=== PATIENT | female | born 1990 | race Caucasian/White ===

== ENCOUNTER → 2023-10-04 13:55 | Outpatient (BNVA) | payer OTHER, SELFPAY | PROVIDERS: Visit Provider Podiatrist Foot & Ankle Surgery | DX: B07.9 Viral wart, unspecified (principal) | CPT/HCPCS: 17110; 99203 ==

== ENCOUNTER → 2023-10-18 14:42 | Outpatient (BNVA) | payer OTHER, SELFPAY | PROVIDERS: Visit Provider Podiatrist Foot & Ankle Surgery | DX: B07.9 Viral wart, unspecified (principal) | CPT/HCPCS: 17110 ==

== ENCOUNTER → 2023-11-05 10:11 | Outpatient (BNVA) | payer OTHER, SELFPAY | PROVIDERS: Visit Provider Podiatrist Foot & Ankle Surgery | DX: B07.9 Viral wart, unspecified | CPT/HCPCS: 17110 ==

== ENCOUNTER → 2023-11-25 10:28 | Outpatient (BNVA) | payer OTHER, SELFPAY | PROVIDERS: Visit Provider Podiatrist Foot & Ankle Surgery | DX: B07.9 Viral wart, unspecified | CPT/HCPCS: 17110 ==

== ENCOUNTER → 2023-12-14 13:40 | Outpatient (BNVA) | payer OTHER, SELFPAY | PROVIDERS: Visit Provider Podiatrist Foot & Ankle Surgery | DX: B07.9 Viral wart, unspecified | CPT/HCPCS: 17110 ==

== ENCOUNTER → 2023-12-28 09:27 | Outpatient (BNVA) | payer OTHER, SELFPAY | PROVIDERS: Visit Provider Podiatrist Foot & Ankle Surgery | DX: B07.9 Viral wart, unspecified | CPT/HCPCS: 99213 ==

== ENCOUNTER → 2024-02-01 10:12 | Outpatient (BNVA) | payer OTHER, SELFPAY | PROVIDERS: PCP Nurse Practitioner; Visit Provider Podiatrist Foot & Ankle Surgery | DX: B07.9 Viral wart, unspecified | CPT/HCPCS: 99213 ==

== ENCOUNTER 2024-07-28 11:26 | Outpatient (CLI) | payer OTHER, SELFPAY ==
--- NOTE | 2024-07-28 11:28 | US_ITS ---
WS: [id number] US pelvic complete* [id number], transabdominal and transvaginal pelvic ultrasound submitted. HISTORY: ANEMIA HEAVY PERIODS COMPARISON: None available. Uterus: 8.1 cm x 5.4 cm x 4.7 cm. Uterus is anteverted during transabdominal imaging. During transvaginal imaging uterus is tipped posterior. Endometrium: 2.0 cm. Markedly thickened heterogeneous, echogenic endometrium with a few scattered cystic areas. Mild increased vascularity. Right ovary: 2.9 cm x 2.6 cm x 2.2 cm. Normal size and vascularity, no cystic or solid masses. Left ovary: LEFT ovary not visualized. No LEFT adnexal mass. No free fluid in the cul-de-sac. US/US pelvic complete* [id number] IMPRESSION: 1. Markedly thickened, hyperechoic endometrium with a few scattered cystic are as. Most likely endometrial hyperplasia. Additional etiologies to consider are neoplasia and post tamoxifen use. Recommend COFFEE SHOP AIDE evaluation and biopsy of the en dometrium. 2. LEFT ovary not visualized.
== END 2024-07-28 11:27 | disposition home or self-care (01) ==
PROVIDERS: PCP Nurse Practitioner; Visit Provider Nurse Practitioner
DX: Z01.89 Encounter for other specified special examinations (principal); R93.89 Abnormal findings on diagnostic imaging of other specified body structures
CPT/HCPCS: 76856

== ENCOUNTER 2024-11-22 18:51 | Emergency (ER) | payer OTHER, SELFPAY ==
--- OUTSIDE RECORDS SUMMARY | 2024-02-28 04:49 | XMS_ITS | Encounter Summary ---
Author Name [facility] [place] [facility] [place] Address [address] [place] [address] Care Team Providers Care Binder Caser Name Role Phone JAMES CAROL Primary Care Provider Unavail able Selected Encounter This section includes the information on record at [place] for the Encounter. Date/Time Encounter Type Encounter Description Reason Provider Source Feb 28, 2024 09:49 AM Outpatient Encounter ADMIN PAT ACTIVTIES (MASNONCT) KAI HARMAN Dong Encounter Template Text not used by [place] Plan of Treatment: Future Appointments (+ 6 months) and Future Tests (+/- 45 days) The Plan of Treatment section includes future care activities for the patient from all [place] treatmentfacilities. This section includes future appointments and future orders which are active, pending or scheduled. Future Appointments This section includes appointments that were scheduled to occur 6 months from the date of the Encounter, up to a maximum of 20 appointments. The data comes from all [place] treatment facilities. Appointment Date/Time Appointment Type Appointme nt Facility Name Jul 14, 2024 09:30 AM AMBULATORY - MEDICINE [facility] Jul 28, 2024 11:30 AM AMBULATORY - MEDICINE [facility] Lab Results: +/- 30 days of the encounter This section includes the Chemistry and Hematology Lab Results on record with [place] for the patient. Radiology Reports and Pathology Reports are provided separately, in subsequent sections. Lab Results This section contains the Chemistry/Hematology Results that were resulted 30 days before or 30 daysafter the date of the Encounter. Date/Time Source Result Type Result - Unit Interpretation Reference Range Specimen Type Comment Mar 17, 2024 08:22 AM [facility] TSH (MA-PB) SERUM Specimen Type: SERUM No comment entered. Ordering Provider: CAROL RAMIREZ Report Released Date/Time: Feb 02, 2024 09:11 AM Reporting Lab: [place] [facility] [address] [place] [address] Performing Lab: [place] [facility] [address] [place] [address] TSH 4.262 u[IU]/mL 0.47-5 Encounter Notes: All associated encounter notes This section contains the clinical notes associated to the Encounter. Date/Time Encounter Note(s) Provider Source Feb 28, 2024 09:49 AM NURSING PROGRESS N OTE: LOCAL TITLE: NURSING NOTE PB STANDARD TITLE: NURSING PROGRESS NOTE DATE OF NOTE: FEB 28, 2024@09:49 ENTRY DATE: FEB 28, 2024@09:49:30 AUTHOR: KAI HARMAN EXP COSIGNER: URGENCY: STATUS: COMPLETED Service Act Breast Cancer Risk Assessment - P: Service Act Screening Patient history reviewed and has not served in applicable areas and thus does not require screening under the Service Act. /erlinda/ KAI RODRIGUEZ CBBRANDON Signed: 02/28/2024 09:49 KAI HARMAN CBBRANDON
--- OUTSIDE RECORDS SUMMARY | 2024-11-22 03:00 | XMS_ITS | Encounter Summary ---
Author Name [facility] [place] [facility] [place] Organization [facility] [place] Address [address] [place] [address] Care Team Providers Care Cruise Agent Name Role Phone CAROL RAMIREZ Primary Care Provider Unavail able Selected Encounter This section includes the information on record at [place] for the Encounter. Date/Time Encounter Type Encounter Description Reason Provider Source Nov 22, 2024 08:00 AM OFF/OP EST AUGUST X REQ PHY/QHP PRIMARY CARE/MEDICINE ICD-10-CM R60.0 Localized edema EDGARD ADLER Dong Encounter Template Text not used by [place] Assessments - Encounter Diagnoses This section includes the primary and secondary diagnoses documented for the Encounter. Date/Time Primary/Secondary Diagnosis Diagnosis Name Provider Source Nov 22, 2024 12:25 PM PRIMARY Localized edema CHARLENE ADLER [facility] Lab Results: +/- 30 days of the encounter This section includes the Chemistry and Hematology Lab Results on record with [place] for the patient. Radiology Reports and Pathology Reports are provided separately, in subsequent sections. Lab Results This section contains the Chemistry/Hematology Results that were resulted 30 days before or 30 daysafter the date of the Encounter. Date/Time Source Result Type Result - Unit Interpretation Reference Range Specimen Type Comment Nov 22, 2024 08:43 AM [facility] IRON/TIBC PROFILE SERUM Specimen Type: SERUM Comment: FE-SAT Unable to be calculated Ordering Provider: WILFREDO RAMIREZ Report Released Date/Time: Nov 22, 2024 08:41 AM Reporting Lab: [place] [facility] [address] [place] [address] Performing Lab[facility] [address] [place] [place] [address] TIBC 345 ug/dL 250-450 TRANSFERRIN 276 mg/dL 173-360 IRON SATURATION comment 15-50 IRON <10 ug/dL L 50-170 Nov 22, 2024 08:43 AM [facility] CBC BLOOD Specimen Type: BLOOD Comment: HGB Called to: Hannah Wallace at:1505 on:11/22/24 by:QUINTEN CRITICAL/VERBAL READ BACK PERFORMED Ordering Provider: CAROL RAMIREZ Report Released Date/Time: Nov 22, 2024 08:41 AM Reporting Lab: [place] [facility] [address] [place] [address] Performing Lab: [place] [facility] [address] [place] [address] WBC 6.3 10*3/uL 3.6-11.2 RBC 3.17 10*6/uL L 3.60-5.00 HGB 6.5 g/dL LL 11.0-14.9 HCT 23.3 L 32.6-43.4 MCV 73.5 fL L 80.0-100.0 MCH 20.5 pg L 27.0-34.0 MCHC 27.9 g/dL L 33.0-36.0 PLT 537 10*3/uL H 150-400 MPV 9.9 fL 7.5-11.2 PLT. (SMEAR EST.) INCREASED ADEQUATE ANISOCYTOSIS 2+ H HYPOCHROMIA 3+ RDW 21.2 H 11.8-15.1 LYMPHOCYTES, AUTO % 29.5 MONOCYTES, AUTO % 7.0 NEUTROPHILS, AUTO % 61.7 EOSINOPHILS, AUTO % 1.3 BASOPHILS, AUTO % 0.2 LYMPHOCYTES, ABSOLUTE 1.86 10*3/uL 0.77- 4.50 MONOCYTES, ABSOLUTE 0.44 10*3/uL 0.19-0. 8 NEUTROPHILS, ABSOLUTE 3.89 10*3/uL 2.10- 8.00 EOSINOPHILS, ABSOLUTE 0.08 10*3/uL 0.00- 0.60 BASOPHILS, ABSOLUTE 0.01 10*3/uL 0.00-0. 20 IMMATURE GRANS, AUTO % 0.3 IMMATURE GRANS, AUTO ABS 0.02 10*3/uL 0. 00-0.05 NORMRBC NO SCRNPERF YES Vital Signs: All taken on the encounter date This section contains inpatient and outpatient Vital Signs collected on the date of the Encounter. Date/Time Temperature Pulse Blood Pressure Respiratory Rate SP02 Pain Height Weight Body Mass Index Source Nov 22, 2024 08:31 AM 98.1 F 82 /min 124/77 mm[Hg] 18 /min 99 % 285.2 lb 52 [facility] Social History: Smoking Status (Most current) and Tobacco Use (All prior to encounter date) This section includes the most current, and the historical, smoking and tobacco- related health factors from the [place] facility where the Encounter took place. Current Smoking Status This section includes the most current smoking, or tobacco-related health factor, from the [place] facility where the Encounter took place. Date/Time Current Smoking Status Comment Dayne gomez Aug 24, 2023 02:01 PM [place]-TOBACCO NEVER USED [facility] Encounter Notes: All associated encounter notes This section contains the clinical notes associated to the Encounter. Date/Time Encounter Note(s) Provider Source Nov 22, 2024 08:32 AM NURSING PROGRESS N OTE: LOCAL TITLE: NURSING NOTE PB STANDARD TITLE: NURSING PROGRESS NOTE DATE OF NOTE: NOV 22, 2024@08:32 ENTRY DATE: NOV 22, 2024@08:32:53 AUTHOR: FELIZ ADLER EXP COSIGNER: URGENCY: STATUS: COMPLETED This is a 34 year old FEMALE with known Allergies as noted: Patient has answered NKA C/C: Bilateral lower extremity edema and fatigue S: advised that she was started on the Depo shot on 10/17/2024 and has been on her period for almost 3 weeks. stated that she has a history of anemia and has been prescribed iron but forgets to take it sometimes. [place] stated that she feel exhausted and noticed that she is started to have LE edema. On the following Active Medications: Active Outpatient Medications (including Supplies): Active Outpatient Medications Status 1) CHOLECALCIF 50MCG (D3-2,000UNIT) TAB TAKE ONE TABLET BY ACTIVE MOUTH ONCE A DAY Indication: FOR VITAMIN D DEFICIENCY 2) FERROUS GLUCONATE 324MG TAB TAKE ONE TABLET BY MOUTH ONCE A ACTIVE DAY Indication: FOR IRON DEFICIENCY ANEMIA 3) LEVOTHYROXINE NA 100MCG TAB TAKE ONE TABLET BY MOUTH EVERY ACTIVE (S) MORNING BEFORE A MEAL TAKE 30 MINUTES BEFORE FOOD. TAKE SEPARATELY FROM ALL OTHER MEDICATIONS. Indication: FOR HYPOTHYROIDISM 4) ROSUVASTATIN CA 10MG TAB TAKE ONE TABLET BY MOUTH EVERY ACTIVE EVENING Indication: FOR HIGH CHOLESTEROL O: [place] ambulated into the clinic without assistance. Steady gait. alert and oriented x4. Unlabored breathing. Bilateral LE edema +2. A/P: Escalated to PCP appt. Provider ordered compression socks and labs. [place] given compression socks in clinic. [place] escorted to lab in stable condition. RTC: as needed /erlinda/ HALEY Espinoza, PATRICIAP [facility] Signed: 11/22/2024 12:25 FELIZ ADLER [place] JANEE
--- OUTSIDE RECORDS SUMMARY | 2024-11-22 03:30 | XMS_ITS | Encounter Summary ---
Author Name [facility] [place] [facility] [place] [facility] [place] Address [address] [place] [address] Care Team Providers Care Rotary Saw Operator Name Role Phone CAROL RAMIREZ Primary Care Provider Unavail able Selected Encounter This section includes the information on record at [place] for the Encounter. Date/Time Encounter Type Encounter Description Reason Provider Source Nov 22, 2024 08:30 AM OFFICE O/P EST MOD 30 MIN PRIMARY CARE/MEDICINE ICD-10-CM N92.1 Excessive and frequent menstruation with irregular cycle SIMON WALLACE IHDong Encounter Template Text not used by [place] Assessments - Encounter Diagnoses This section includes the primary and secondary diagnoses documented for the Encounter. Date/Time Primary/Secondary Diagnosis Diagnosis Name Provider Source Nov 22, 2024 01:00 PM PRIMARY Excessive and frequent menstruation with irregular cycle HANNAH WALLACE [facility] [place] [facility] Nov 22, 2024 01:00 PM SECONDARY Edema, unspecified HANNAH WALLACE [facility] [place] [facility] Nov 22, 2024 01:00 PM SECONDARY Other fatigue HANNAH WALLACE [facility] Lab Results: +/- 30 days of the encounter This section includes the Chemistry and Hematology Lab Results on record with [place] for the patient. Radiology Reports and Pathology Reports are provided separately, in subsequent sections. Lab Results This section contains the Chemistry/Hematology Results that were resulted 30 days before or 30 daysafter the date of the Encounter. Date/Time Source Result Type Result - Unit Interpretation Reference Range Specimen Type Comment Nov 22, 2024 08:43 AM [facility] IRON/TIBC PROFILE SERUM Specimen Type: SERUM Comment: FE-SAT Unable to be calculated Ordering Provider: WILFREDO RAMIREZ Report Released Date/Time: Nov 22, 2024 08:41 AM Reporting Lab: [place] [facility] [address] [place] [address] Performing Lab: [place] [facility] [address] [place] [address] TIBC 345 ug/dL 250-450 TRANSFERRIN 276 mg/dL 173-360 IRON SATURATION comment 15-50 IRON <10 ug/dL L 50-170 Nov 22, 2024 08:43 AM [facility] CBC BLOOD Specimen Type: BLOOD Comment: HGB Called to: Hannah Wallace at:1505 on:11/22/24 by:SF CRITICAL/VERBAL READ BACK PERFORMED Ordering Provider: CAROL RAMIREZ Report Released Date/Time: Nov 22, 2024 08:41 AM Reporting Lab: [place] [facility] [address] [place] [address] Performing Lab: [place] [facility] [address] [place] [address] WBC 6.3 10*3/uL 3.6-11.2 RBC 3.17 10*6/uL [...] 18 /min 99 % 285.2 lb 52 [facility] Social History: Smoking Status (Most current) and Tobacco Use (All prior to encounter date) This section includes the most current, and the historical, smoking and tobacco- related health factors from the [place] facility where the Encounter took place. Current Smoking Status This section includes the most current smoking, or tobacco-related health factor, from the [place] facility where the Encounter took place. Date/Time Current Smoking Status Comment Facil ity Aug 24, 2023 02:01 PM [place]-TOBACCO NEVER USED [facility] Encounter Notes: All associated encounter notes This section contains the clinical notes associated to the Encounter. Date/Time Encounter Note(s) Provider Source Nov 22, 2024 04:36 PM LABORATORY NOTE: LOCAL TITLE: CRITICAL LAB RESULTS COMMUNICATION NOTE PB STANDARD TITLE: LABORATORY NOTE DATE OF NOTE: NOV 22, 2024@16:36 ENTRY DATE: NOV 22, 2024@16:36:27 AUTHOR: GLORIA CHAVES EXP COSIGNER: URGENCY: STATUS: COMPLETED CRITICAL LAB RESULTS COMMUNICATION NOTE PB Has ADDENDA Critically low Hgb of 6.5 related to prolonged heavy menstral bleeding post Depo shot at GYNs office on October 17. [place] has been unavailable despite mult attempts by personnel. HIPAA compliant voicemail left. /erlinda/ Gloria Chaves APRN, MARINE MECHANIC-C, [facility] Bill Mcgarry [facility] Signed: 11/22/2024 16:38 11/23/2024 ADDENDUM STATUS: COMPLETED Contacted [place] and confirmed that she went to the ER last night and received a unit of blood. [place] stated that she will call back for appt to follow up with PCP. /erlinda/ Nelly Grant RN [place], JAllenP [facility] Signed: 11/23/2024 08:16 GLORIA CHAVES [place] [facility] Nov 22, 2024 08:47 AM PRIMARY CARE PROGR ESS NOTE: LOCAL TITLE: PRIMARY CARE CLINIC PROGRESS NOTE PB STANDARD TITLE: PRIMARY CARE PROGRESS NOTE DATE OF NOTE: NOV 22, 2024@08:47 ENTRY DATE: NOV 22, 2024@08:47:31 AUTHOR: HANNAH WALLACE EXP COSIGNER: URGENCY: STATUS: COMPLETED PRIMARY CARE CLINIC PROGRESS NOTE PB Has ADDENDA Date & Time:Oct@08:47 This is a 34 year old FEMALE Allergies: Patient has answered NKA CC: period for 3 weeks and lower edema HPI: presented today for as a walk-in unscheduled appointment for complaints of excessive bleeding x 3 weeks with menstrual cycle heavy with large clots. States received the Depo shot at GYNs office on October 17 and has been bleeding ever since. [place] has bilateral lower leg edema with excessive fatigue and some dizziness with bending over states that she does not want the Depo injection anymore instructed to follow-up with her at her COMMUNICATIONS AGENT since the COMMUNICATIONS AGENT did prescribe and instructed on different options as far as medication goes for control instructed to discuss with COMMUNICATIONS AGENT on different options and to go ahead and get that changed at this point agrees to follow-up and do that. Will do labs today because of fatigue edema and dizziness. Temperature: 98.1 F [36.7 C] (11/22/2024 08:31) Respiratory Rate: 18 (11/22/2024 08:31) Pulse Rate: 82 (11/22/2024 08:31) Blood Pressure: 124/77 (11/22/2024 08:31) HT: 62.0 in [157.5 cm] (09/14/2023 14:50) WT: 285.2 lb [129.36 kg] (11/22/2024 08:31) BMI: 52.3 99% (11/22/2024 08:31) REVIEW OF SYSTEMS: RESPIRATORY: No cough, SOA, wheezing, or sputum production. CARDIOVASCULAR: No chest pain, palpitations, tachycardia, PND, or orthopnea. GI: No abdominal pain, nausea, vomiting, diarrhea, constipation, melena, or hematochezia. : No dysuria, hematuria, urinary frequency, weak stream, or post-void dribbling. excessive mentral cycle for 3 weeks heavy with clotting MUSCULOSKELETAL: No muscle or joint pain. Generalized fatigue PSYCH: No depression and anxious at this time. Not suicidal. 1) Hypothyroidism ([facility] [id number]) 2) Obesity ([facility] [id number]) 3) Hearing Loss ([facility] [id number]) 4) Tinnitus 5) Oligomenorrhea 6) Exposure to Potentially Hazardous Substance ([facility] [id number]) 7) Anemia 8) Endometrial hyperplasia Active Outpatient Medications (including Supplies): Active Outpatient [...] EVERY ACTIVE EVENING Indication: FOR HIGH CHOLESTEROL OBJECTIVE: Physical Exam General: NAD noted, A&Ox3, pleasant, appears stated age Neck: Supple with normal active ROM, without any lymphadenopathy Heart: RRR, no murmur, clicks, or rub Resp: Lungs CTA bilaterally, respirations even and unlabored Abdomen: Soft, non-distended, non-tender Ext: No clubbing, cyanosis, or obvious deformity. lower extremity edema bilaterally Neuro: Grossly intact Psych: Affect normal, answers questions appropriately throughout visit Assessment/Plan: fatigue -current plan labs today menorrhagia -current plan to return to COMMUNICATIONS AGENT for control medication change and plan labs today. lower extremity edema -current plan proper hydration and support socks Follow-up: as needed. Discussed with patient that in the event of community imaging / testing being ordered in the future, once the imaging / testing has been completed, please notify PACT of completion at outside facility if not called with results within 1 week by a [place] PACT member; this is due to intermittent lapses in notification of imaging completion within CPR[facility]. All questions answered; agrees to plan of care. Follow up as listed above, annually, and as needed. Keep all appointments. Medications Reconciled. See AVS given to [place]. Time spent 30 minutes. Hannah TAYLOR /erlinda/ YVONNE Paiz, MSN, Bill [facility] Signed: 11/22/2024 13:06 11/22/2024 ADDENDUM STATUS: COMPLETED Attempted to contact to advised that the Provider recommends for her to report to the ER for further evaluation and treatment for Hgb 6.5. No answer. Left VM. /es/ Nelly Grant RN [place] [facility], [facility] Signed: 11/22/2024 15:10 11/22/2024 ADDENDUM STATUS: COMPLETED Left [facility] Compliant voicemail as was not available. /es/ Gloria Chaves APRN, YVONNE-C, C Bill [facility] Signed: 11/22/2024 16:35 [facility] WALL[facility]
[2024-11-22 18:53] VITALS: BP 156/79; PULSE 96; RESP 18; TEMP 36.8; O2SAT 100; BMI 52.1
--- NOTE | 2024-11-22 19:04 | W.ED.RECABL ---
HPI - Recheck/Abnormal Lab/Rx General: Chief Complaint: Recheck/Abnormal Lab/Rx Stated Complaint: [facility], blood transfusion Time Seen by Provider: 11/22/24 18:54 Source: patient Mode of arrival: ambulatory Limitations: no limitations History of Present Illness: 34-year-old female who states that she has had a history of heavy menses in the past along with slight anemia states she started Depo shot a month ago and has had a continuous period since then. She states that she has not seen her physician and had her blood drawn and was called today and told to stop the Depo shot and that she would likely need a blood transfusion she has had some malaise denies any vomiting or diarrhea. Related Data Home Medications ?Medication ?Instructions ?Recorded ?Confirmed levothyroxine 25 mcg capsule 25 mcg PO DAILY 10/04/23 10/17/24 Previous Rx's ?Medication ?Instructions ?Recorded fluorouracil 5 % topical cream 1 applic topical BID 2 weeks #40 10/04/23 grams medroxyprogesterone 150 mg/mL 150 mg IM .[id number] #1 mL 10/16/24 intramuscular suspension (Depo-Provera) Allergies Allergy/AdvReac Type Severity Reaction Status Date / Time No Known Allergies Allergy Verified 11/22/24 19:00 Review of Systems Const: Reports: fatigue and malaise; Denies: fever(s), chills, body aches or change in appetite ENMT: Denies: throat pain or dental pain Card: Denies: chest pain Resp: Denies: dyspnea GI: Denies: abdominal pain, nausea, vomiting or diarrhea : Denies: dysuria Musc: Denies: neck pain or back pain Skin/Breast: Denies: rash Neuro: Denies: headache(s) All/Imm: Denies: urticaria PFSH ED PFSH: Family History Denies family history of Colon cancer Ovarian cancer Diabetes Heart disease Hyperlipidemia Breast cancer Hypertension Uterine cancer Thyroid disease Stroke Social History Smoking and tobacco/nicotine status: current every day tobacco/nicotine user (vape) Physical Exam Const: COMMON NORMALS: no acute distress, patient oriented x3 and healthy appearing HENMT: COMMON NORMALS: normocephalic and atraumatic HEAD & SCALP: normocephalic and atraumatic Eye: COMMON NORMALS: conjunctivae normal CONJUNCTIVA: Yes conjunctivae normal Neck/C-Spine: COMMON NORMALS: full ROM and supple Chest: COMMONS NORMALS: normal inspection of the chest Resp: COMMON NORMALS: normal respiratory effort, No retractions, No use of accessory muscles and clear to auscultation bilaterally AUSCULTATION: clear to auscultation bilaterally Cardio: COMMON NORMALS: regular rate, regular rhythm and No murmurs present (Cardio) RATE: regular rate RHYTHM: regular rhythm GI: COMMON NORMALS: Normal to inspection, nondistended, normoactive bowel sounds present, Soft to palpation, non-tender and no masses PALPATION: Yes Soft to palpation Extremity: COMMON NORMALS: normal to inspection and full ROM Neuro: COMMON NORMALS: patient oriented x3, moves all extremities and no focal motor deficits Psych: COMMON NORMALS: mental status grossly normal, Normal thought process present and cooperative THOUGHT PROCESS: Normal thought process present Skin: COMMON NORMALS: no rashes or lesions noted and no wounds GENERAL SKIN EXAM: no rashes or lesions noted Course Vital Signs: Vital signs: Vital Signs Temperature 98.3 F 11/22/24 18:53 Pulse Rate 94 11/22/24 19:29 Respiratory Rate 18 11/22/24 18:53 Blood Pressure 96/78 11/22/24 19:29 Pulse Oximetry 100 11/22/24 19:29 Oxygen Delivery Me thod Room Air 11/22/24 19:29 MDM - Recheck/Abnormal Lab/Rx Medical Decision Making Patient presents for anemia likely from her menstrual period. Hemoglobin is 6.5 vitals here are normal we will give her 1 unit of blood she stable for discharge she is then to follow-up with her PCP. Medical Records I reviewed the patient's medical records. Lab Data I reviewed the patient's lab results. 11/22/24 19:11/22/24 19: Laboratory Results WBC 7.42 10^3/uL (3.29-11.43) 11/22/24 19: RBC 3.16 10^6/uL (3.85-5.65) L 11/22/24 19:25 Hgb 6.50 g/dL (11.27-16.99) L* 11/22/24 19:25 Hct 22.8 % (36-47) L 11/22/24 19: MCV 72.2 fl (85-98) L 11/22/24 19: MCH 20.6 pg (27-33) L 11/22/24 19: MCHC 28.5 g/dL (30-55) L 11/22/24 19:25 RDW 20.9 % (12.1-15.1) H 11/22/24 19: Plt Count 497 10^3/cmm (157-399) H 11/22/24 19:25 MPV 9.2 fL (7.4-10.4) 11/22/24 19: Neut % (Auto) 69.9 % 11/22/24 19: Lymph % (Auto) 23.5 % 11/22/24 19: Waller % (Auto) 5.1 % 11/22/24: Eos % (Auto) 0.8 % 11/22/24: Baso % (Auto) 0.3 % 11/22/24: Neut # (Auto) 5.19 10^3/uL (1.8-7.7) 11/22/24: Lymph # (Auto) 1.7 10^3/uL (0.8-4.8) 11/22/24: Waller # (Auto) 0.4 10^3/uL (0.2-0.9) 11/22/24: Eos # (Auto) 0.1 10^3/uL (0.0-0.8) 11/22/24: Baso # (Auto) 0.0 10^3/uL (0.0-0.1) 11/22/24: Nucleated RBC % (auto) 0 % 11/22/24: Nucleated RBCs # 0.0 /100WBC 11/22/24 19:25 Sodium 141 mmol/L (136-145) 11/22/24 19:25 Potassium 3.8 mmol/L (3.5-5.1) 11/22/24 19:25 Chloride 107 mmol/L (98-107) 11/22/24 19:25 Carbon Dioxide 21 mmol/L (22-29) L 11/22/24 19:25 Anion Gap 16.8 (5-19) 11/22/24 19:25 BUN 5 mg/dL (6-20) L 11/22/24 19:25 Creatinine 0.6 mg/dL (0.5-0.9) 11/22/24 19:25 GFR Calculation 115.9 mL/min (90-130) 11/22/24 19:25 Glucose 112 mg/dL (65-115) 11/22/24 19:25 Calculated Osmolality 290 mOsm/kg (285-295) 11/22/24 19:25 Calcium 8.2 mg/dL (8.5-10.5) L 11/22/24 19:25 Total Bilirubin 0.2 mg/dL (0.15-1.2) 11/22/24 19:25 AST 12 U/L (0-32) 11/22/24 19:25 ALT 7 U/L (0-33) 11/22/24 19:25 Alkaline Phosphatase 133 U/L (35-105) H 11/22/24 19:25 Total Protein 6.6 g/dL (6.6-8.7) 11/22/24 19:25 Albumin 3.8 g/dL (3.5-5.2) 11/22/24 19:25 Globulin 2.8 g/dL (1.3-4.6) 11/22/24 19:25 HCG, Qual Negative (Negative) 11/22/24 19:25 No radiology studies performed this visit Discharge Plan Discharge Patient Disposition: Home Clinical Impression: Anemia Condition: Stable Prescriptions: No Action medroxyprogesterone [Depo-Provera] 150 mg/mL suspension 150 mg IM .[id number] Qty: 1 4RF levothyroxine 25 mcg capsule 25 mcg PO DAILY fluorouracil 5 % cream 1 applic topical BID 14 Days Qty: 40 0RF Discharge Orders: Discharge ED (Routine); Ordered 11/22/24 Ordered By: Devante Marinelli Referrals: Jena Dodson FNP [Primary Care Provider, Nurse Practitioner] - 4-7 days Discharge Diet: Advance as tolerated Discharge Activity: Resume usual activity Patient Instructions: Anemia (ED) Print Language: Lebanese Coding Level of Care Code ED Cargo Supervisor for Carylg Tomasa
[2024-11-22 19:29] VITALS: BP 96/78; PULSE 94; O2SAT 100
[2024-11-22 19:36] LABS: Hematocrit 22.8 % (36-47); Mean Corpuscular HGB Conc 28.5 g/dL (30-55); Mean Corpuscular Hemoglobin 20.6 pg (27-33); Mean Corpuscular Volume 72.2 fl (85-98); Nucleated Red Blood Cells % 0 %; Platelet Count 497 10^3/cmm (157-399); Red Blood Count 3.16 10^6/uL (3.85-5.65); White Blood Count 7.42 10^3/uL (3.29-11.43)
[2024-11-22 19:43] LABS: Hemoglobin 6.50 g/dL (11.27-16.99)
[2024-11-22 19:52] LABS: HCG, Serum Qual Negative (Negative)
[2024-11-22 19:53] LABS: Alanine Aminotransferase 7 U/L (0-33); Albumin Level 3.8 g/dL (3.5-5.2); Alkaline Phosphatase 133 U/L (35-105); Anion Gap 16.8 (5-19); Aspartate Amino Transferase 12 U/L (0-32); Blood Urea Nitrogen 5 mg/dL (6-20); Calcium 8.2 mg/dL (8.5-10.5); Carbon Dioxide 21 mmol/L (22-29); Chloride 107 mmol/L (98-107); Creatinine Clr Calc Pharmacy 173.7604; Globulin 2.8 g/dL (1.3-4.6); Glucose 112 mg/dL (65-115); Osmolality Calculated 290 mOsm/kg (285-295); Potassium 3.8 mmol/L (3.5-5.1); Sodium 141 mmol/L (136-145); Total Protein 6.6 g/dL (6.6-8.7)
[2024-11-22 21:27] VITALS: BP 149/89; PULSE 78; TEMP 37.1; O2SAT 100
[2024-11-22 21:44] VITALS: BP 126/75; PULSE 81; TEMP 36.9; O2SAT 100
[2024-11-22 21:59] VITALS: BP 119/73; PULSE 85; TEMP 36.8; O2SAT 99
[2024-11-22 22:59] VITALS: BP 139/84; PULSE 78; TEMP 36.9; O2SAT 100
--- OUTSIDE RECORDS SUMMARY | 2024-11-24 03:09 | XMS_ITS | Continuity of Care Document ---
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 It does not include entries that were removed or entered in error. Problem Status Onset Date Problem Type Date of Resolution Comments Source EXAM WITH POSITIVE RESULT Inactive Condition [facility] Education Initial Visit Active Condition [facility] Health Seminar on Care Active Condition [facility] Supervision Of Normal First Inactive Condition [facility] Inactive Condition : Counseling scheduled for today at 1300. Educated on healthy diet, regular exercise, avoiding medications. DoD visit for: issue repeat prescription for medication Inactive Condition visit for: issue repeat prescription for medication [facility] ROUTINE PELVIC EXAM Inactive Condition ROUTINE PELVIC EXAM DoD visit for: administrative purpose Inactive Condition [facility] DIETARY CALCIUM DEFICIENCY Active Condition [facility] PREMENSTRUAL SYNDROMES Active Condition [facility] visit for: services physical accession Active Condition [facility] Patient Education Inactive Condition [facility] Anticipatory Guidance: Unsafe Sexual Practices Inactive Condition [facility] Gynecologic Services Contraceptive General Counseling Inactive Condition [facility] Dietary Counseling Pertaining To Osteoporosis Inactive Condition [facility] visit for: services physical Active Condition [facility] REFRACTIVE ERROR - HYPERMETROPIA Active Condition [facility] AMBLYOPIA REFRACTIVE Active Condition [facility] visit for: ears / hearing exam Active Condition [facility] Anemia Active Condition [facility] Endometrial hyperplasia Active Condition [facility] Exposure to Potentially Hazardous Substance ([facility] [id number]) Active Condition [facility] Hearing Loss ([facility] [id number]) Active Condition [facility] Hypothyroidism (SCT 63630146) Active Condition [facility] Obesity ([facility]CT 206308532) Active Condition [facility] Oligomenorrhea Active Condition [facility] Tinnitus Active Condition [facility] Diagnosis: ICD-10-CM N92.1 Excessive and frequent menstruation with irregular cycle Active Diagnosis [facility] Diagnosis: ICD-10-CM R60.0 Localized edema Active Diagnosis [facility] Diagnosis: ICD-10-CM Z71.89 Other specified counseling Active Diagnosis [facility] Diagnosis: ICD-10-CM Z00.00 Encntr for general adult medical exam w/o abnormal findings Active Diagnosis [facility] Diagnosis: ICD-10-CM H93.13 Tinnitus, bilateral Active Diagnosis [facility] Diagnosis: ICD-10-CM Z01.10 Encounter for exam of ears and hearing w/o abnormal findings Active Diagnosis [facility] Diagnosis: ICD-10-CM Z01.419 Encntr for transcribing operator head exam (general) (routine) w/o abn findings Active Diagnosis [facility] Diagnosis: ICD-10-CM E03.9 Hypothyroidism, unspecified Active Diagnosis [facility] Diagnosis: ICD-10-CM J03.90 Acute tonsillitis, unspecified Active Diagnosis [facility] Medications Combined list of outpatient medications from Department of Defense and Veterans Affairs facilities.Medications provided include 1) outpatient medications from the last 15 months, and 2) patient-reported medications. Medication Details Route Status Patient Instructions Prescription Expires Prescription Number Last Dispense Date Ordering Provider Order Date Order Qty Source CHOLECALCIF LUCINDA 50MCG (2,000UNIT) TAB TAKE ONE TABLET BY MOUTH ONCE A DAY FOR VITAMIN D DEFICIEN CY ORAL ACTIVE 07/13/2025 [id number] 5 Luz RAMIREZ R 2024 100 [facility] FERROUS GLUCONATE 324MG TAB TAKE ONE TABLET BY MOUTH ONCE A DAY FOR IRON DEFICIEN CY ANEMIA ORAL ACTIVE 07/13/2025 [id number] 5 Luz RAMIREZ R 2024 100 [facility] JOLESSA 30MCG/0.15M G TAB,EC,91 TAKE 1 TABLET BY MOUTH ONCE A DAY FOR CONTROL ORAL 09/06/2024 [id number] 4 Luz RAMIREZ R 2023 1 [facility] LEVOTHYROXI NE NA 100MCG TAB TAKE ONE TABLET BY MOUTH EVERY MORNING BEFORE A MEAL FOR HYPOTHYR OIDISM TAKE 30 MINUTES BEFORE FOOD. TAKE SEPARATE LY FROM ALL OTHER MEDICATI ONS. ORAL ACTIVE 11/23/2025 [id number] 5 Luz RAMIREZ R 2024 90 [facility] LEVOTHYROXI NE NA 100MCG TAB TAKE ONE TABLET BY MOUTH EVERY MORNING BEFORE A MEAL FOR HYPOTHYR OIDISM TAKE 30 MINUTES BEFORE FOOD. TAKE SEPARATE LY FROM ALL OTHER MEDICATI ONS. ORAL DISCONT INUED 05/04/2025 [id number] 5 Luz RAMIREZ R [address] [place] [address] [facility] LEVOTHYROXI NE NA 50MCG TAB (SYNTHROID) TAKE ONE TABLET BY MOUTH EVERY MORNING BEFORE A MEAL FOR HYPOTHYR OIDISM TAKE 30 MINUTES BEFORE FOOD. TAKE SEPARATE LY FROM ALL OTHER MEDICATI ONS. ORAL DISCONT INUED BY PROVIDE R 01/30/2024 [id number] 4 Luz RAMIREZ R [address] [place] [address] CB LEVOTHYROXI NE NA 75MCG TAB (SYNTHROID) TAKE ONE TABLET BY MOUTH EVERY MORNING BEFORE A MEAL FOR HYPOTHYR OIDISM TAKE 30 MINUTES BEFORE FOOD. TAKE SEPARATE LY FROM ALL OTHER MEDICATI ONS. ORAL DISCONT INUED (EDIT) 02/01/2025 [id number] 4 Luz RAMIREZ R [address] [place] [address] [facility] ROSUVASTATI N CA 10MG TAB TAKE ONE TABLET BY MOUTH EVERY EVENING FOR HIGH CHOLESTE ROL ORAL ACTIVE 08/03/2025 [id number] 5 MATHEW GARCIA [address] [place] [address] [facility] ROSUVASTATI N CA 10MG TAB TAKE ONE-HALF TABLET BY MOUTH EVERY EVENING FOR HIGH CHOLESTE ROL ORAL DISCONT INUED (EDIT) 07/13/2025 [id number] 5 Luz RAMIREZ R [address] [place] [address] Allergies, Adverse Reactions, Alerts Combined list of allergies from Department of Defense and Veterans Affairs facilities. It does not include entries that were removed or entered in error. Substance Category Reaction Severity Reaction type Status Date Reported Comments Source No Known Allergies Drug allergy (disorder) active 04/09/2017 [employer] Immunizations Combined list of available immunizations from the Department of Defense and Veterans Affairs facilities. 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 (CS) complet ed Influenza , seasonal, injectabl e DoD tetanus toxoid, reduced diphtheria toxoid, and acellular pertu is vaccine, adsorbed 0 2013 Unknown, Provider [id number] Sanofi Pasteur ([facility]) complet ed tetanus toxoid, reduced diphtheri a toxoid, and acellular pertussis vaccine, adsorbed DoD Influenza, seasonal, injectable, preservative free 0 2013 Unknown, Provider [id number] 140 [place]. (NOV) complet ed Influenza , seasonal, injectabl e, preservat nghia free DoD typhoid Vi capsular polysaccharid e vaccine 2 2013 [id number] 101 Sanofi Pasteur ([facility]) complet ed typhoid Vi capsular polysacch aride vaccine DoD seasonal influenza, intradermal, preservative free 0 2012 [id number] 1A 144 [employer] ([facility]) complet ed seasonal influenza , intraderm al, preservat nghia free DoD anthrax vaccine 2 2011 [id number] (EBS) complet ed anthrax vaccine DoD influenza virus vaccine, live, attenuated, for intranasal use 0 2011 [id number] 111 [employer] (CS) complet ed influenza virus vaccine, live, attenuate d, for intranasa l use DoD anthrax vaccine 1 2011 [id number] 24 (EBS) complet ed anthrax vaccine DoD poliovirus vaccine, inactivated 0 2011 [id number] 10 Sanofi Pasteur ([facility]) complet ed polioviru s vaccine, inactivat ed DoD yellow fever vaccine 0 2011 [id number] Sanofi Pasteur ([facility]) complet ed yellow fever vaccine DoD typhoid Vi capsular polysaccharid e vaccine 1 2011 [id number] 101 Sanofi Pasteur ([facility]) complet ed typhoid Vi capsular polysacch aride vaccine DoD meningococcal polysaccharid e (groups A, C, Y and W-135) diphtheria toxoid conjugate vaccine (MCV4P) 0 2011 [id number] 114 [employer] ([facility]) complet ed meningoco ccal polysacch aride (groups A, C, Y and W-135) diphtheri a toxoid conjugate vaccine (MCV4P) DoD tetanus toxoid, reduced diphtheria toxoid, and acellular pertu is vaccine, adsorbed 0 2011 [id number] 115 Sanofi Pasteur ([facility]) complet ed tetanus toxoid, reduced diphtheri a toxoid, and acellular pertussis vaccine, adsorbed DoD Influenza, seasonal, injectable, preservative free 0 2011 [id number] 1DA 140 [employer] (MED) complet ed Influenza , seasonal, injectabl e, preservat nghia free DoD Adenovirus, type 4 and type 7, live, oral 0 2011 [id number] 143 [employer] (BRR) complet ed Adenoviru s, type 4 and type 7, live, oral DoD Results Combined list of recent chemistry, hematology and other laboratory results from Department of Defense and Veterans Affairs, ranging from 15 months to all on record, depending upon the facility. Order Name Results Value Reference Range Date Interpretation Specimen Comments Source IRON/TIBC PROFILE IRON BINDING CAPACITY [MASS/VOLUM E] IN SERUM OR PLASMA 345 ug/dL 250 - 450 11/22 Specimen Type: SERUM Comment: FE-SAT Unable to be calculated Ordering Provider: LILIAN RAMIREZ Report Released Date/Time: Nov 22, 2024 08:41 AM Reporting Lab: [facility] [address] [facility] [address] Performing Lab: [facility] [address] [facility] [place] [address] [facility] IRON/TIBC PROFILE TRANSFERRIN [MASS/VOLUM E] IN SERUM OR PLASMA 276 mg/dL 173 - 360 11/22 Specimen Type: SERUM Comment: FE-SAT Unable to be calculated Ordering Provider: LILIAN RAMIREZ Report Released Date/Time: Nov 22, 2024 08:41 AM Reporting Lab: [facility] [address] [place] [address] Performing Lab: [place] [facility] [address] [place] [address] [facility] IRON/TIBC PROFILE IRON SATURATION [MASS FRACTION] IN SERUM OR PLASMA comment 15 - 50 11/22 Specimen Type: SERUM Comment: FE-SAT Unable to be calculated Ordering Provider: LILIAN RAMIREZ R Report Released Date/Time: Nov 22, 2024 08:41 AM Reporting Lab: [place] [facility] [address] [place] [address] Performing Lab: [place] [facility] [address] [place] [address] [facility] IRON/TIBC PROFILE IRON [MASS/VOLUM E] IN SERUM OR PLASMA <10ug/dL 50 - 170 11/22 L Specimen Type: SERUM Comment: FE-SAT Unable to be calculated Ordering Provider: LILIAN RAMIREZ R Report Released Date/Time: Nov 22, 2024 08:41 AM Reporting Lab: [place] [facility] [address] [place] [address] Performing Lab: [place] [facility] [address] [place] [address] [facility] CBC LEUKOCYTES [#/VOLUME] IN BLOOD BY AUTOMATED COUNT 6.3 10*3/uL 3.6 - 11.2 11/22 Specimen Type: BLOOD Comment: HGB Called to: Hannah Wallace at:1505 on:11/22/24 by:QUINTEN CRITICAL/VE RBAL READ BACK PERFORMED Ordering Provider: LILIAN RAMIREZ R Report Released Date/Time: Nov 22, 2024 08:41 AM Reporting Lab: [place] [facility] [address] [place] [address] Performing Lab: [place] [facility] [address] [place] [address] [facility] CBC ERYTHROCYTE S [#/VOLUME] IN BLOOD BY AUTOMATED COUNT 3.17 10*6/uL 3.60 - 5.00 11/22 L Specimen Type: BLOOD Comment: HGB Called to: Hannah Wallace at:1505 on:11/22/24 by:QUINTEN CRITICAL/VE RBAL READ BACK PERFORMED Ordering Provider: LILIAN RAMIREZ R Report Released Date/Time: Nov 22, 2024 08:41 AM Reporting Lab: [place] [facility] [address] [place] [address] Performing Lab: [place] [facility] [address] [place] [address] [facility] CBC HEMOGLOBIN [MASS/VOLUM E] IN BLOOD 6.5 g/dL 11.0 - 14.9 11/22 LL Specimen Type: BLOOD Comment: HGB Called to: Hannah Wallace at:1505 on:11/22/24 by:QUINTEN CRITICAL/VE RBAL READ BACK PERFORMED Ordering Provider: LILIAN RAMIREZ R Report Released Date/Time: Nov 22, 2024 08:41 AM Reporting Lab: [place] [facility] [address] [place] [address] Performing Lab: [place] [facility] [address] [place] [address] [facility] CBC HEMATOCRIT [VOLUME FRACTION] OF BLOOD 23.3 32.6 - 43.4 11/22 L Specimen Type: BLOOD Comment: HGB Called to: Hannah Wallace at:1505 on:11/22/24 by:QUINTEN CRITICAL/VE RBAL READ BACK PERFORMED Ordering Provider: LILIAN RAMIREZ R Report Released Date/Time: Nov 22, 2024 08:41 AM Reporting Lab: [place] [facility] [address] [place] [address] Performing Lab: [place] [facility] [address] [place] [address] [facility] CBC MCV [ENTITIC VOLUME] BY AUTOMATED COUNT 73.5 fL 80.0 - 100.0 11/22 L Specimen Type: BLOOD Comment: HGB Called to: Hannah Wallace at:1505 on:11/22/24 by:QUINTEN CRITICAL/VE RBAL READ BACK PERFORMED Ordering Provider: LILIAN RAMIREZ R Report Released Date/Time: Nov 22, 2024 08:41 AM Reporting Lab: [place] [facility] [address] [place] [address] Performing Lab: [place] [facility] [address] [place] [address] [facility] CBC MCH [ENTITIC MASS] BY AUTOMATED COUNT 20.5 pg 27.0 - 34.0 11/22 L Specimen Type: BLOOD Comment: HGB Called to: Hannah Wallace at:1505 on:11/22/24 by:QUINTEN CRITICAL/VE RBAL READ BACK PERFORMED Ordering Provider: LILIAN RAMIREZ R Report Released Date/Time: Nov 22, 2024 08:41 AM Reporting Lab: [place] [facility] [address] [place] [address] Performing Lab: [place] [facility] [address] [place] [address] [facility] CBC MCHC [MASS/VOLUM E] BY AUTOMATED COUNT 27.9 g/dL 33.0 - 36.0 11/22 L Specimen Type: BLOOD Comment: HGB Called to: Hannah Wallace at:1505 on:11/22/24 by:QUINTEN CRITICAL/VE RBAL READ BACK PERFORMED Ordering Provider: LILINA RAMIREZ R Report Released Date/Time: Nov 22, 2024 08:41 AM Reporting Lab: [place] [facility] [address] [place] [address] Performing Lab: [place] [facility] [address] [place] [address] [facility] CBC PLATELETS [#/VOLUME] IN BLOOD BY AUTOMATED COUNT 537 10*3/uL 150 - 400 11/22 H Specimen Type: BLOOD Comment: HGB Called to: Hannah Wallace at:1505 on:11/22/24 by:QUINTEN CRITICAL/VE RBAL READ BACK PERFORMED Ordering Provider: LILIAN RAMIREZ R Report Released Date/Time: Nov 22, 2024 08:41 AM Reporting Lab: [place] [facility] [address] [place] [address] Performing Lab: [place] [facility] [address] [place] [address] [facility] CBC PLATELET MEAN VOLUME [ENTITIC VOLUME] IN BLOOD BY AUTOMATED COUNT 9.9 fL 7.5 - 11.2 11/22 Specimen Type: BLOOD Comment: HGB Called to: Hannah Wallace at:1505 on:11/22/24 by:QUINTEN CRITICAL/VE RBAL READ BACK PERFORMED Ordering Provider: LILIAN RAMIREZ R Report Released Date/Time: Nov 22, 2024 08:41 AM Reporting Lab: [place] [facility] [address] [place] [address] Performing Lab: [place] [facility] [address] [place] [address] [facility] CBC PLATELET ADEQUACY [PRESENCE] IN BLOOD BY LIGHT MICROSCOPY INCREASE D 11/22 Specimen Type: BLOOD Comment: HGB Called to: Hannah Wallace at:1505 on:11/22/24 by:QUINTEN CRITICAL/VE RBAL READ BACK PERFORMED Ordering Provider: LILIAN RAMIREZ R Report Released Date/Time: Nov 22, 2024 08:41 AM Reporting Lab: [place] [facility] [address] [place] [address] Performing Lab: [place] [facility] [address] [place] [address] [facility] CBC ANISOCYTOSI S [PRESENCE] IN BLOOD BY LIGHT MICROSCOPY 2+ 11/22 H Specimen Type: BLOOD Comment: HGB Called to: Hannah Wallace at:1505 on:11/22/24 by:QUINTEN CRITICAL/VE RBAL READ BACK PERFORMED Ordering Provider: LILIAN RAMIREZ R Report Released Date/Time: Nov 22, 2024 08:41 AM Reporting Lab: [place] [facility] [address] [place] [address] Performing Lab: [place] [facility] [address] [place] [address] [facility] CBC HYPOCHROMIA [PRESENCE] IN BLOOD BY LIGHT MICROSCOPY 3+ 11/22 Specimen Type: BLOOD Comment: HGB Called to: Hannah Wallace at:1505 on:11/22/24 by:QUINTEN CRITICAL/VE RBAL READ BACK PERFORMED Ordering Provider: LILIAN RAMIREZ R Report Released Date/Time: Nov 22, 2024 08:41 AM Reporting Lab: [place] [facility] [address] [place] [address] Performing Lab: [place] [facility] [address] [place] [address] [facility] CBC ERYTHROCYTE DISTRIBUTIO N WIDTH [RATIO] BY AUTOMATED COUNT 21.2 11.8 - 15.1 11/22 H Specimen Type: BLOOD Comment: HGB Called to: Hannah Wallace at:1505 on:11/22/24 by:QUINTEN CRITICAL/VE RBAL READ BACK PERFORMED Ordering Provider: LILIAN RAMIREZ R Report Released Date/Time: Nov 22, 2024 08:41 AM Reporting Lab: [place] [facility] [address] [place] [address] Performing Lab: [place] [facility] [address] [place] [address] [facility] CBC LYMPHOCYTES /100 LEUKOCYTES IN BLOOD BY AUTOMATED COUNT 29.5 11/22 Specimen Type: BLOOD Comment: HGB Called to: Hannah Wallace at:1505 on:11/22/24 by:QUINTEN CRITICAL/VE RBAL READ BACK PERFORMED Ordering Provider: LILIAN RAMIREZ R Report Released Date/Time: Nov 22, 2024 08:41 AM Reporting Lab: [place] [facility] [address] [place] [address] Performing Lab: [place] [facility] [address] [place] [address] [facility] CBC MONOCYTES/1 00 LEUKOCYTES IN BLOOD BY AUTOMATED COUNT 7.0 11/22 Specimen Type: BLOOD Comment: HGB Called to: Hannah Wallace at:1505 on:11/22/24 by:QUINTEN CRITICAL/VE RBAL READ BACK PERFORMED Ordering Provider: LILIAN RAMIREZ R Report Released Date/Time: Nov 22, 2024 08:41 AM Reporting Lab: [place] [facility] [address] [place] [address] Performing Lab: [place] [facility] [address] [place] [address] [place] [facility] CBC NEUTROPHILS /100 LEUKOCYTES IN BLOOD BY AUTOMATED COUNT 61.7 11/22 Specimen Type: BLOOD Comment: HGB Called to: Hannah Wallace at:1505 on:11/22/24 by:QUINTEN CRITICAL/VE RBAL READ BACK PERFORMED Ordering Provider: LILIAN RAMIREZ R Report Released Date/Time: Nov 22, 2024 08:41 AM Reporting Lab: [place] [facility] [address] [place] [address] Performing Lab: [place] [facility] [address] [place] [address] [facility] CBC EOSINOPHILS /100 LEUKOCYTES IN BLOOD BY AUTOMATED COUNT 1.3 11/22 Specimen Type: BLOOD Comment: HGB Called to: Hannah Wallace at:1505 on:11/22/24 by:QUINTEN CRITICAL/VE RBAL READ BACK PERFORMED Ordering Provider: LILIAN RAMIREZ R Report Released Date/Time: Nov 22, 2024 08:41 AM Reporting Lab: [place] [facility] [address] [place] [address] Performing Lab: [place] [facility] [address] [place] [address] [facility] CBC BASOPHILS/1 00 LEUKOCYTES IN BLOOD BY AUTOMATED COUNT 0.2 11/22 Specimen Type: BLOOD Comment: HGB Called to: Hannah Wallace at:1505 on:11/22/24 by:QUINTEN CRITICAL/VE RBAL READ BACK PERFORMED Ordering Provider: LILIAN RAMIREZ R Report Released Date/Time: Nov 22, 2024 08:41 AM Reporting Lab: [place] [facility] [address] [place] [address] Performing Lab: [place] [facility] [address] [place] [address] [facility] CBC LYMPHOCYTES [#/VOLUME] IN BLOOD BY AUTOMATED COUNT 1.86 10*3/uL 0.77 - 4.50 11/22 Specimen Type: BLOOD Comment: HGB Called to: Hannah Wallace at:1505 on:11/22/24 by:QUINTEN CRITICAL/VE RBAL READ BACK PERFORMED Ordering Provider: LILIAN RAMIREZ R Report Released Date/Time: Nov 22, 2024 08:41 AM Reporting Lab: [place] [facility] [address] [place] [address] Performing Lab: [place] [facility] [address] [place] [address] [facility] CBC MONOCYTES [#/VOLUME] IN BLOOD BY AUTOMATED COUNT 0.44 10*3/uL 0.19 - 0.8 11/22 Specimen Type: BLOOD Comment: HGB Called to: Hannah Wallace at:1505 on:11/22/24 by:QUINTEN CRITICAL/VE RBAL READ BACK PERFORMED Ordering Provider: LILIAN RAMIREZ R Report Released Date/Time: Nov 22, 2024 08:41 AM Reporting Lab: [place] [facility] [address] [place] [address] Performing Lab: [place] [facility] [address] [place] [address] [facility] CBC NEUTROPHILS [#/VOLUME] IN BLOOD BY AUTOMATED COUNT 3.89 10*3/uL 2.10 - 8.00 11/22 Specimen Type: BLOOD Comment: HGB Called to: Hannah Wallace at:1505 on:11/22/24 by:QUINTEN CRITICAL/VE RBAL READ BACK PERFORMED Ordering Provider: LILIAN RAMIREZ R Report Released Date/Time: Nov 22, 2024 08:41 AM Reporting Lab: [place] [facility] [address] [place] [address] Performing Lab: [place] [facility] [address] [place] [address] [facility] CBC EOSINOPHILS [#/VOLUME] IN BLOOD BY AUTOMATED COUNT 0.08 10*3/uL 0.00 - 0.60 11/22 Specimen Type: BLOOD Comment: HGB Called to: Hannah Wallace at:1505 on:11/22/24 by:QUINTEN CRITICAL/VE RBAL READ BACK PERFORMED Ordering Provider: LILIAN RAMIREZ R Report Released Date/Time: Nov 22, 2024 08:41 AM Reporting Lab: [place] [facility] [facility] [address] [place] [address] Performing Lab: [place] [facility] [address] [place] [address] [facility] CBC BASOPHILS [#/VOLUME] IN BLOOD BY AUTOMATED COUNT 0.01 10*3/uL 0.00 - 0.20 11/22 Specimen Type: BLOOD Comment: HGB Called to: Hannah Wallace at:1505 on:11/22/24 by:QUINTEN CRITICAL/VE RBAL READ BACK PERFORMED Ordering Provider: LILIAN RAMIREZ R Report Released Date/Time: Nov 22, 2024 08:41 AM Reporting Lab: [place] [facility] [address] [place] [address] Performing Lab: [place] [facility] [address] [place] [address] [facility] CBC IMMATURE GRANULOCYTE S/100 LEUKOCYTES IN BLOOD BY AUTOMATED COUNT 0.3 11/22 Specimen Type: BLOOD Comment: HGB Called to: Hannah Wallace at:1505 on:11/22/24 by:QUINTEN CRITICAL/VE RBAL READ BACK PERFORMED Ordering Provider: LILIAN RAMIREZ R Report Released Date/Time: Nov 22, 2024 08:41 AM Reporting Lab: [place] [facility] [address] [place] [address] Performing Lab: [place] [facility] [address] [place] [address] [facility] CBC IMMATURE GRANULOCYTE S [#/VOLUME] IN BLOOD BY AUTOMATED COUNT 0.02 10*3/uL 0.00 - 0.05 11/22 Specimen Type: BLOOD Comment: HGB Called to: Hannah Wallace at:1505 on:11/22/24 by:QUINTEN CRITICAL/VE RBAL READ BACK PERFORMED Ordering Provider: LILIAN RAMIREZ R Report Released Date/Time: Nov 22, 2024 08:41 AM Reporting Lab: [place] [facility] [address] [place] [address] Performing Lab: [place] [facility] [address] [place] [address] [facility] CBC MANUAL DIFFERENTIA L COMMENT [INTERPRETA TION] IN BLOOD NARRATIVE NO 11/22 Specimen Type: BLOOD Comment: HGB Called to: Hannah Wallace at:1505 on:11/22/24 by:QUINTEN CRITICAL/VE RBAL READ BACK PERFORMED Ordering Provider: LILIAN RAMIREZ R Report Released Date/Time: Nov 22, 2024 08:41 AM Reporting Lab: [place] [facility] [address] [place] [address] Performing Lab: [place] [facility] [address] [place] [address] [facility] CBC MANUAL DIFFERENTIA L PERFORMED [PRESENCE] IN BLOOD YES 11/22 Specimen Type: BLOOD Comment: HGB Called to: Hannah Wallace at:1505 on:11/22/24 by:QUINTEN CRITICAL/VE RBAL READ BACK PERFORMED Ordering Provider: LILIAN RAMIREZ R Report Released Date/Time: Nov 22, 2024 08:41 AM Reporting Lab: [place] [facility] [address] [place] [address] Performing Lab: [place] [facility] [address] [place] [address] [facility] B12 COBALAMIN (VITAMIN B12) [MASS/VOLUM E] IN SERUM OR PLASMA 308 pg/mL 213 - 816 07/14 Specimen Type: SERUM No comment entered. Ordering Provider: LILIAN RAMIREZ Report Released Date/Time: Jul 14, 2024 10:07 AM Reporting Lab: [place] [facility] [address] [place] [address] Performing Lab: [place] [facility] [address] [place] [address] [facility] FOLATE (PB) FOLATE [MASS/VOLUM E] IN SERUM OR PLASMA 9.2 ng/mL 7 - 20 07/14 Specimen Type: SERUM No comment entered. Ordering Provider: LILIAN RAMIREZ R Report Released Date/Time: Jul 14, 2024 10:07 AM Reporting Lab: [place] [facility] [address] [place] [address] Performing Lab: [place] [facility] [address] [place] [address] [facility] IRON IRON [MASS/VOLUM E] IN SERUM OR PLASMA 20 ug/dL 50 - 170 07/14 L Specimen Type: PLASMA No comment entered. Ordering Provider: LILIAN RAMIREZ R Report Released Date/Time: Jul 14, 2024 10:07 AM Reporting Lab: [place] [facility] [address] [place] [address] Performing Lab: [place] [facility] [address] [place] [address] [facility] CBC LEUKOCYTES [#/VOLUME] IN BLOOD BY AUTOMATED COUNT 6.5 10*3/uL 3.6 - 11.2 07/14 Specimen Type: BLOOD No comment entered. Ordering Provider: LILIAN RAMIREZ Report Released Date/Time: Jul 14, 2024 10:07 AM Reporting Lab: [place] [facility] [address] [place] [address] Performing Lab: [place] [facility] [address] [place] [address] [facility] CBC ERYTHROCYTE S [#/VOLUME] IN BLOOD BY AUTOMATED COUNT 4.82 10*6/uL 3.60 - 5.00 07/14 Specimen Type: BLOOD No comment entered. Ordering Provider: LILIAN RAMIREZ R Report Released Date/Time: Jul 14, 2024 10:07 AM Reporting Lab: [place] [facility] [address] [place] [address] Performing Lab: [place] [facility] [address] [place] [address] [facility] CBC HEMOGLOBIN [MASS/VOLUM E] IN BLOOD 9.5 g/dL 11.0 - 14.9 07/14 L Specimen Type: BLOOD No comment entered. Ordering Provider: LILIAN RAMIREZ Report Released Date/Time: Jul 14, 2024 10:07 AM Reporting Lab: [place] [facility] [address] [place] [address] Performing Lab: [place] [facility] [address] [place] [address] [facility] CBC HEMATOCRIT [VOLUME FRACTION] OF BLOOD 33.1 32.6 - 43.4 07/14 Specimen Type: BLOOD No comment entered. Ordering Provider: LILIAN RAMIREZ R Report Released Date/Time: Jul 14, 2024 10:07 AM Reporting Lab: [place] [facility] [address] [place] [address] Performing Lab: [place] [facility] [address] [place] [address] [facility] CBC MCV [ENTITIC VOLUME] BY AUTOMATED COUNT 68.7 fL 80.0 - 100.0 07/14 L Specimen Type: BLOOD No comment entered. Ordering Provider: LILIAN RAMIREZ R Report Released Date/Time: Jul 14, 2024 10:07 AM Reporting Lab: [place] [facility] [address] [place] [address] Performing Lab: [place] [facility] [address] [place] [address] [facility] CBC MCH [ENTITIC MASS] BY AUTOMATED COUNT 19.7 pg 27.0 - 34.0 07/14 L Specimen Type: BLOOD No comment entered. Ordering Provider: LILIAN RAMIREZ R Report Released Date/Time: Jul 14, 2024 10:07 AM Reporting Lab: [place] [facility] [address] [place] [id number] Performing Lab: [place] [facility] [address] [place] [address] [facility] CBC MCHC [MASS/VOLUM E] BY AUTOMATED COUNT 28.7 g/dL 33.0 - 36.0 07/14 L Specimen Type: BLOOD No comment entered. Ordering Provider: LILINA RAMIREZ R Report Released Date/Time: Jul 14, 2024 10:07 AM Reporting Lab: [place] [facility] [address] [place] [id number] Performing Lab: [place] [facility] [address] [place] [address] [facility] CBC PLATELETS [#/VOLUME] IN BLOOD BY AUTOMATED COUNT 528 10*3/uL 150 - 400 07/14 H Specimen Type: BLOOD No comment entered. Ordering Provider: LILIAN RAMIREZ R Report Released Date/Time: Jul 14, 2024 10:07 AM Reporting Lab: [place] [facility] [address] [place] [address] Performing Lab: [place] [facility] [address] [place] [address] [facility] CBC PLATELET MEAN VOLUME [ENTITIC VOLUME] IN BLOOD BY AUTOMATED COUNT 10.1 fL 7.5 - 11.2 07/14 Specimen Type: BLOOD No comment entered. Ordering Provider: LILIAN RAMIREZ Report Released Date/Time: Jul 14, 2024 10:07 AM Reporting Lab: [place] [facility] [address] [place] [address] Performing Lab: [place] [facility] [address] [place] [address] [facility] CBC PLATELET ADEQUACY [PRESENCE] IN BLOOD BY LIGHT MICROSCOPY INCREASE D 07/14 Specimen Type: BLOOD No comment entered. Ordering Provider: LILIAN RAMIREZ R Report Released Date/Time: Jul 14, 2024 10:07 AM Reporting Lab: [place] [facility] [address] [place] [address] Performing Lab: [place] [facility] [address] [place] [address] [facility] CBC ANISOCYTOSI S [PRESENCE] IN BLOOD BY LIGHT MICROSCOPY 2+ 07/14 H Specimen Type: BLOOD No comment entered. Ordering Provider: LILIAN RAMIREZ R Report Released Date/Time: Jul 14, 2024 10:07 AM Reporting Lab: [place] [facility] [address] [place] [address] Performing Lab: [place] [facility] [address] [place] [address] [facility] CBC MICROCYTES [PRESENCE] IN BLOOD BY LIGHT MICROSCOPY 1+ 07/14 Specimen Type: BLOOD No comment entered. Ordering Provider: LILIAN RAMIREZ R Report Released Date/Time: Jul 14, 2024 10:07 AM Reporting Lab: [place] [facility] [address] [place] [address] Performing Lab: [place] [facility] [address] [place] [address] [facility] CBC HYPOCHROMIA [PRESENCE] IN BLOOD BY LIGHT MICROSCOPY 3+ 07/14 Specimen Type: BLOOD No comment entered. Ordering Provider: LILIAN RAMIREZ Report Released Date/Time: Jul 14, 2024 10:07 AM Reporting Lab: [place] [facility] [address] [place] [address] Performing Lab: [place] [facility] [address] [place] [address] [facility] CBC ERYTHROCYTE DISTRIBUTIO N WIDTH [RATIO] BY AUTOMATED COUNT 18.1 11.8 - 15.1 07/14 H Specimen Type: BLOOD No comment entered. Ordering Provider: LILIAN RAMIREZ Report Released Date/Time: Jul 14, 2024 10:07 AM Reporting Lab: [place] [facility] [address] [place] [id number] Performing Lab: [place] [facility] [address] [place] [address] [facility] CBC LYMPHOCYTES /100 LEUKOCYTES IN BLOOD BY AUTOMATED COUNT 21.7 07/14 Specimen Type: BLOOD No comment entered. Ordering Provider: LILIAN RAMIREZ Report Released Date/Time: Jul 14, 2024 10:07 AM Reporting Lab: [place] [facility] [address] [place] [address] Performing Lab: [place] [facility] [address] [place] [address] [facility] CBC MONOCYTES/1 00 LEUKOCYTES IN BLOOD BY AUTOMATED COUNT 5.1 07/14 Specimen Type: BLOOD No comment entered. Ordering Provider: LILIAN RAMIREZ R Report Released Date/Time: Jul 14, 2024 10:07 AM Reporting Lab: [place] [facility] [address] [place] [address] Performing Lab: [place] [facility] [address] [place] [address] [facility] CBC NEUTROPHILS /100 LEUKOCYTES IN BLOOD BY AUTOMATED COUNT 71.6 07/14 Specimen Type: BLOOD No comment entered. Ordering Provider: LILIAN RAMIREZ R Report Released Date/Time: Jul 14, 2024 10:07 AM Reporting Lab: [place] [facility] [address] [place] [address] Performing Lab: [place] [facility] [address] [place] [address] [facility] CBC EOSINOPHILS /100 LEUKOCYTES IN BLOOD BY AUTOMATED COUNT 0.9 07/14 Specimen Type: BLOOD No comment entered. Ordering Provider: LILIAN RAMIREZ Report Released Date/Time: Jul 14, 2024 10:07 AM Reporting Lab: [place] [facility] [address] [place] [address] Performing Lab: [place] [facility] [address] [place] [address] [facility] CBC BASOPHILS/1 00 LEUKOCYTES IN BLOOD BY AUTOMATED COUNT 0.5 07/14 Specimen Type: BLOOD No comment entered. Ordering Provider: LILIAN RAMIREZ Report Released Date/Time: Jul 14, 2024 10:07 AM Reporting Lab: [place] [facility] [address] [place] [address] Performing Lab: [place] [facility] [address] [place] [address] [facility] CBC LYMPHOCYTES [#/VOLUME] IN BLOOD BY AUTOMATED COUNT 1.40 10*3/uL 0.77 - 4.50 07/14 Specimen Type: BLOOD No comment entered. Ordering Provider: LILIAN RAMIREZ R Report Released Date/Time: Jul 14, 2024 10:07 AM Reporting Lab: [place] [facility] [address] [place] [address] Performing Lab: [place] [facility] [address] [place] [address] [facility] CBC MONOCYTES [#/VOLUME] IN BLOOD BY AUTOMATED COUNT 0.33 10*3/uL 0.19 - 0.8 07/14 Specimen Type: BLOOD No comment entered. Ordering Provider: LILIAN RAMIREZ R Report Released Date/Time: Jul 14, 2024 10:07 AM Reporting Lab: [place] [facility] [address] [place] [address] Performing Lab: [place] [facility] [address] [place] [address] [facility] CBC NEUTROPHILS [#/VOLUME] IN BLOOD BY AUTOMATED COUNT 4.63 10*3/uL 2.10 - 8.00 07/14 Specimen Type: BLOOD No comment entered. Ordering Provider: LILIAN RAMIREZ Report Released Date/Time: Jul 14, 2024 10:07 AM Reporting Lab: [place] [facility] [address] [place] [facility] Performing Lab: [place] [facility] [address] [place] [facility] [facility] CBC EOSINOPHILS [#/VOLUME] IN BLOOD BY AUTOMATED COUNT 0.06 10*3/uL 0.00 - 0.60 07/14 Specimen Type: BLOOD No comment entered. Ordering Provider: LILIAN RAMIREZ R Report Released Date/Time: Jul 14, 2024 10:07 AM Reporting Lab: [place] [facility] [address] [place] [facility] Performing Lab: [place] [facility] [address] [place] [facility] [facility] CBC BASOPHILS [#/VOLUME] IN BLOOD BY AUTOMATED COUNT 0.03 10*3/uL 0.00 - 0.20 07/14 Specimen Type: BLOOD No comment entered. Ordering Provider: LILIAN RAMIREZ R Report Released Date/Time: Jul 14, 2024 10:07 AM Reporting Lab: [place] [facility] [address] [place] [facility] Performing Lab: [place] [facility] [address] [place] [address] [facility] CBC STOMATOCYTE S [PRESENCE] IN BLOOD BY LIGHT MICROSCOPY 1+ 07/14 H Specimen Type: BLOOD No comment entered. Ordering Provider: LILIAN RAMIREZ R Report Released Date/Time: Jul 14, 2024 10:07 AM Reporting Lab: [place] [facility] [address] [place] [phone] Performing Lab: [place] [facility] [address] [place] [address] [facility] CBC OVALOCYTES [PRESENCE] IN BLOOD BY LIGHT MICROSCOPY 1+ 07/14 H Specimen Type: BLOOD No comment entered. Ordering Provider: LILIAN RAMIREZ Report Released Date/Time: Jul 14, 2024 10:07 AM Reporting Lab: [place] [facility] [address] [place] [address] Performing Lab: [place] [facility] [address] [place] [address] [facility] CBC IMMATURE GRANULOCYTE S/100 LEUKOCYTES IN BLOOD BY AUTOMATED COUNT 0.2 07/14 Specimen Type: BLOOD No comment entered. Ordering Provider: LILIAN RAMIREZ Report Released Date/Time: Jul 14, 2024 10:07 AM Reporting Lab: [place] [facility] [address] [place] [address] Performing Lab: [place] [facility] [address] [place] [address] [facility] CBC IMMATURE GRANULOCYTE S [#/VOLUME] IN BLOOD BY AUTOMATED COUNT 0.01 10*3/uL 0.00 - 0.05 07/14 Specimen Type: BLOOD No comment entered. Ordering Provider: LILIAN RAMIREZ R Report Released Date/Time: Jul 14, 2024 10:07 AM Reporting Lab: [place] [facility] [address] [place] [id number] Performing Lab: [place] [facility] [address] [place] [address] [facility] CBC MANUAL DIFFERENTIA L COMMENT [INTERPRETA TION] IN BLOOD NARRATIVE NO 07/14 Specimen Type: BLOOD No comment entered. Ordering Provider: LILIAN RAMIREZ Report Released Date/Time: Jul 14, 2024 10:07 AM Reporting Lab: [place] [facility] [address] [place] [address] Performing Lab: [place] [facility] [address] [place] [address] [facility] CBC MANUAL DIFFERENTIA L PERFORMED [PRESENCE] IN BLOOD YES 07/14 Specimen Type: BLOOD No comment entered. Ordering Provider: LILIAN RAMIREZ Report Released Date/Time: Jul 14, 2024 10:07 AM Reporting Lab: [place] [facility] [address] [place] [address] Performing Lab: [place] [facility] [address] [place] [address] [facility] FERRITIN FERRITIN [MASS/VOLUM E] IN SERUM OR PLASMA 6 ng/mL - 07/14 L Specimen Type: SERUM No comment entered. Ordering Provider: LILIAN RAMIREZ Report Released Date/Time: Jul 14, 2024 10:07 AM Reporting Lab: [place] [facility] [address] [place] [address] Performing Lab: [place] [facility] [address] [place] [address] [facility] HGA1C HEMOGLOBIN A1C/HEMOGLO BIN.TOTAL IN BLOOD 5.6 4.0 - 6.0 06/29 Specimen Type: BLOOD No comment entered. Ordering Provider: LILIAN RAMIREZ Report Released Date/Time: Jun 29, 2024 08:45 AM Reporting Lab: [place] [facility] [address] [place] [address] Performing Lab: [place] [facility] [address] [place] [address] [place] [facility] URINALYSI S (STL-PB) COLOR OF URINE Light Yellow 06/29 Specimen Type: URINE No comment entered. Ordering Provider: LILIAN RAMIREZ Report Released Date/Time: Jun 29, 2024 08:45 AM Reporting Lab: [place] [facility] [address] [place] [address] Performing Lab: [place] [facility] [address] [place] [address] [place] [facility] URINALYSI S (STL-PB) BILIRUBIN.T OTAL [PRESENCE] IN URINE BY TEST STRIP NEGATIVE mg/dL 06/29 Specimen Type: URINE No comment entered. Ordering Provider: RAMIREZ,CAT HERINE R Report Released Date/Time: Jun 29, 2024 08:45 AM Reporting Lab: [place] [facility] [address] [place] [address] Performing Lab: [place] [facility] [address] [place] [address] [place] [facility] URINALYSI S (STL-PB) PH OF URINE BY TEST STRIP 5.5 5.0 - 8.0 06/29 Specimen Type: URINE No comment entered. Ordering Provider: LILIAN RAMIREZ R Report Released Date/Time: Jun 29, 2024 08:45 AM Reporting Lab: [place] [facility] [address] [place] [address] Performing Lab: [place] [facility] [address] [place] [address] [place] [facility] URINALYSI S (STL-PB) LEUKOCYTES [#/AREA] IN URINE SEDIMENT BY MICROSCOPY HIGH POWER FIELD 27 /[HPF] 0 - 5 06/29 H Specimen Type: URINE No comment entered. Ordering Provider: LILIAN RAMIREZ R Report Released Date/Time: Jun 29, 2024 08:45 AM Reporting Lab: [place] [facility] [address] [place] [address] Performing Lab: [place] [facility] [address] [place] [address] [place] [facility] URINALYSI S (STL-PB) ERYTHROCYTE S [#/VOLUME] IN URINE SEDIMENT BY MICROSCOPY HIGH POWER FIELD 8 /[HPF] 0 - 5 06/29 H Specimen Type: URINE No comment entered. Ordering Provider: LILIAN RAMIREZ R Report Released Date/Time: Jun 29, 2024 08:45 AM Reporting Lab: [place] [facility] [address] [place] [place] [address] Performing Lab: [place] [facility] [address] [place] [address] [place] [facility] URINALYSI S (STL-PB) APPEARANCE OF URINE CLEAR 06/29 Specimen Type: URINE No comment entered. Ordering Provider: LILIAN RAMIREZ R Report Released Date/Time: Jun 29, 2024 08:45 AM Reporting Lab: [place] [facility] [address] [place] [place] [address] Performing Lab: [place] [facility] [address] [place] [address] [place] [facility] URINALYSI S (STL-PB) NITRITE [PRESENCE] IN URINE BY TEST STRIP NEGATIVE mg/dL 06/29 Specimen Type: URINE No comment entered. Ordering Provider: LILIAN RAMIREZ Report Released Date/Time: Jun 29, 2024 08:45 AM Reporting Lab: [place] [facility] [address] [place] [address] Performing Lab: [place] [facility] [address] [place] [address] [place] [facility] URINALYSI S (STL-PB) EPITHELIAL CELLS [#/AREA] IN URINE SEDIMENT BY MICROSCOPY LOW POWER FIELD 2 /[HPF] 0 - 5 06/29 Specimen Type: URINE No comment entered. Ordering Provider: LILIAN RAMIREZ Report Released Date/Time: Jun 29, 2024 08:45 AM Reporting Lab: [place] [facility] [address] [place] [address] Performing Lab: [place] [facility] [address] [place] [address] [place] [facility] URINALYSI S (STL-PB) MUCUS [PRESENCE] IN URINE SEDIMENT BY LIGHT MICROSCOPY RARE/[LP F] 06/29 Specimen Type: URINE No comment entered. Ordering Provider: LILIAN ARMIREZ Report Released Date/Time: Jun 29, 2024 08:45 AM Reporting Lab: [place] [facility] [address] [place] [address] Performing Lab: [place] [facility] [address] [place] [address] [place] [facility] URINALYSI S (STL-PB) GLUCOSE [MASS/VOLUM E] IN URINE BY TEST STRIP NORMALmg /dL 06/29 Specimen Type: URINE No comment entered. Ordering Provider: LILIAN RAMIREZ Report Released Date/Time: Jun 29, 2024 08:45 AM Reporting Lab: [place] [facility] [address] [place] [address] Performing Lab: [place] [facility] [address] [place] [address] [place] [facility] URINALYSI S (STL-PB) PROTEIN [MASS/VOLUM E] IN URINE BY TEST STRIP NEGATIVE mg/dL 06/29 Specimen Type: URINE No comment entered. Ordering Provider: LILIAN RAMIREZ Report Released Date/Time: Jun 29, 2024 08:45 AM Reporting Lab: [place] [facility] [address] [place] [place] [address] Performing Lab: [place] [facility] [address] [place] [place] [address] [place] [facility] URINALYSI S (STL-PB) URN.UROBILI NOGEN NORMALmg /dL 06/29 Specimen Type: URINE No comment entered. Ordering Provider: LILIAN RAMIREZ Report Released Date/Time: Jun 29, 2024 08:45 AM Reporting Lab: [place] [facility] [address] [place] [place] [address] Performing Lab: [place] [facility] [address] [place] [address] [place] [facility] URINALYSI S (STL-PB) HEMOGLOBIN [MASS/VOLUM E] IN URINE BY TEST STRIP 2+mg/dL 06/29 H Specimen Type: URINE No comment entered. Ordering Provider: LILIAN RAMIREZ Report Released Date/Time: Jun 29, 2024 08:45 AM Reporting Lab: [place] [facility] [address] [place] [address] Performing Lab: [place] [facility] [address] [place] [address] [place] [facility] URINALYSI S (STL-PB) KETONES [MASS/VOLUM E] IN URINE BY TEST STRIP NEGATIVE mg/dL 06/29 Specimen Type: URINE No comment entered. Ordering Provider: LILIAN RAMIREZ Report Released Date/Time: Jun 29, 2024 08:45 AM Reporting Lab: [place] [facility] [address] [place] [address] Performing Lab: [place] [facility] [address] [place] [address] [place] [facility] URINALYSI S (STL-PB) URN.LEUK.ES T. 250 06/29 H Specimen Type: URINE No comment entered. Ordering Provider: LILIAN RAMIREZ Report Released Date/Time: Jun 29, 2024 08:45 AM Reporting Lab: [place] [facility] [address] [place] [address] Performing Lab: [place] [facility] [address] [place] [address] [place] [facility] URINALYSI S (STL-PB) SPECIFIC GRAVITY OF URINE 1.023 1.005 - 1.029 06/29 Specimen Type: URINE No comment entered. Ordering Provider: LILIAN RAMIREZ Report Released Date/Time: Jun 29, 2024 08:45 AM Reporting Lab: [place] [facility] [address] [place] [address] Performing Lab: [place] [facility] [address] [place] [address] [place] [facility] VITAMIN D, 25-HYDROX Y 25-HYDROXYV ITAMIN D3 [MASS/VOLUM E] IN SERUM OR PLASMA 13.4 ng/mL 30 - 96 06/29 L Specimen Type: SERUM No comment entered. Ordering Provider: LILIAN RAMIREZ Report Released Date/Time: Jun 29, 2024 08:45 AM Reporting Lab: [place] [facility] [address] [place] [address] Performing Lab: [place] [facility] [address] [place] [address] [place] [facility] Vital Signs Combined list of inpatient and outpatient Vital Signs from Department of Defense and Veterans Affairs, ranging from 12 months to all on record, depending upon the facility. Vital Sign Value Date Comments Source SYSTOLIC BLOOD PRESSURE 124 11/22/2024 08:31:18 [facility] DIASTOLIC BLOOD PRESSURE 77 11/22/2024 08:31:18 [place] PULSE OXIMETRY 99 % 11/22/2024 08:31:18 [place] [facility] WEIGHT 285.2 11/22/2024 08:31:18 [place] [facility] BMI 52 kg/m2 11/22/2024 08:31:18 [place] [facility] TEMPERATURE 98.1 11/22/2024 08:31:18 [place] [place] [facility] PULSE 82 11/22/2024 08:31:18 [place] [place] [facility] RESPIRATION 18 11/22/2024 08:31:18 [place] [facility] SYSTOLIC BLOOD PRESSURE 122 07/14/2024 09:57:07 [place] [facility] DIASTOLIC BLOOD PRESSURE 84 07/14/2024 09:57:07 [place] [place] [facility] PULSE OXIMETRY 99 07/14/2024 09:57:07 [place] [facility] WEIGHT 280.4 07/14/2024 09:57:07 [place] [facility] BMI 51 kg/m2 07/14/2024 09:57:07 [place] [facility] TEMPERATURE 98.3 07/14/2024 09:57:07 [place] [facility] PULSE 71 07/14/2024 09:57:07 [place] [facility] RESPIRATION 18 07/14/2024 09:57:07 [place] [facility] Encounters Combined list of: 1) Encounters from Department of Veterans Affairs facilities going backup to the last 18 months, not all VA inpatient encounters are included; 2) Encounters from the Department of Defense facilities going backup to 280 months. Location Location Details Encounter Type Encounter Number Reason For Visit Attending Provider ADM Date DC Date Status Disposition Source [facility](Op tometry [facility] 1523) OUTPATIENT [id number] t screen IC P-3 Div 113 ABRAN SWANSON 06/11 Released w/o Limitations [facility]( Optomet ry [facility] 1523) [facility](Au diology [facility] 1523) OUTPATIENT [id number] DIANA MOLINA 06/11 Released w/o Limitations [facility]( Audiolo gy [facility] 1523) [facility](Fe male Screening 1523) OUTPATIENT [id number] inpro PHILLIP TRACEY 06/12 Released w/o Limitations [facility]( Female Screeni ng 1523) [facility] Female) OUTPATIENT [id number] LINDSEY Hutson 06/12 Released w/o Limitations [facility]( [facility] Female) [facility](Op tometry [facility] 237) OUTPATIENT [id number] eye exam KWADWO HAWKINS 08/18 Released w/o Limitations [facility]( Optomet ry [facility] 237) [facility](Mi litary Sick Call [facility] 237) OUTPATIENT [id number] Notes Entered by: SHAWN PUCKETT 23 Oct 2011 1433 ------- ------- ------- ------- -- HALIMA TA 10/22 Released w/o Limitations [facility]( Militar y Sick Call [facility] 237) Theater Facility OUTPATIENT [id number] Theater Provider 04/27 Released w/o Limitations [facility] OUTPATIENT [id number] Theater Provider 10/10 Released w/o Limitations [facility] OUTPATIENT [id number] Theater Provider 07/25 Released with Work/Duty Limitations Theater Facilit y [facility] [place]( [employer]se Promotion Writer) OUTPATIENT [id number] intake BULMARO [place] 08/15 Released w/o Limitations [facility] [place] [facility]([employer]se Promotion Writer) [facility]([place] Promotion Writer Operation s Center) OUTPATIENT [id number] Notes Entered by: MOHINI HAM 06 Sep 2013 1243 ------- ------- ------- ------- -- DATING U/S ANA LUISA HINDS 09/06 Released w/o Limitations [facility](S D Promotion Writer Operati ons Center) [facility](SD Promotion Writer Operation s Center) OUTPATIENT [id number] PNR MOHINI HAM 09/06 Released w/o Limitations [facility](S D Promotion Writer Operati ons Center) [facility](NTC Promotion Writer [employer]) OUTPATIENT [id number] NOB centeri ivone pt RACHELLE BRENNANE 09/29 Released w/o Limitations [facility](N Promotion Writer [employer] ) [facility](SD Nutrition ) OUTPATIENT [id number] EXCESSI VE WEIGHT GAIN IN PREGNAN HIRO QIU 10/10 Released w/o Limitations [facility](S D Nutriti on) [facility]([place] Promotion Writer Operation s Center) OUTPATIENT [id number] Centeri ng Session #1 L-14 KUSHALSARANYA VENTURARIDong Wilkerson 10/11 Released w/o Limitations [facility](S D Promotion Writer Operati ons Center) [facility]([place] Promotion Writer Operation s Center) OUTPATIENT [id number] Centeri ng Session #2 L-14 KUSHALSARANYA VENTURARIE L 11/08 Released w/o Limitations [facility](S D Promotion Writer Operati ons Center) [facility]([place] Lumber [employer]) OUTPATIENT [id number] KUSHALSARANYA VENTURARIDong Wilkerson 12/06 Released w/o Limitations [facility](S D L[employer]) [facility]([place] Promotion Writer Operation s Center) OUTPATIENT [id number] Centeri ng session #4 L-14 KUSHAL, KIM L 01/03 Released w/o Limitations [facility](S D Promotion Writer Operati ons Center) [facility]([place] Promotion Writer Social Work) OUTPATIENT [id number] Notes Entered by: YAJAIRA HAM 03 Jan 2014 1350 ------- ------- ------- ------- -- Cofacil itation of a portion of Centeri ng Group YAJAIRA HAM 01/03 Released w/o Limitations [facility](S D Promotion Writer Social Work) [facility]([place] Promotion Writer Operation s Center) OUTPATIENT [id number] Centeri ng Session #5 L-14 YARED FATIMAE L 01/31 Released w/o Limitations [facility](S D Promotion Writer Operati ons Center) [facility]([place] Promotion Writer Operation s Center) OUTPATIENT [id number] [place] Session #6 L-14 KIM FATIMA L 02/08 Released w/o Limitations [facility](S D Promotion Writer Operati ons Center) [facility]([place] Promotion Writer Operation s Center) OUTPATIENT [id number] FLU AND TDAP MADDIE LOPEZ 02/16 Released w/o Limitations [facility](S D Promotion Writer Operati ons Center) [facility]([place] Promotion Writer Operation s Center) OUTPATIENT [id number] [place] Session #7 L-14 KIM FATIMA 02/27 Released w/o Limitations [facility](S D Promotion Writer Operati ons Center) [facility]([place] [facility]) OUTPATIENT [id number] [facility] TESSIE SANCHEZ 02/28 Released w/o Limitations [facility]([place] Primary Care) [facility]([place] Promotion Writer Operation s Center) OUTPATIENT [id number] [place] ivone Session #8 L-14 KIM FATIMA L 03/13 Released w/o Limitations [facility](S D Promotion Writer Operati ons Center) [facility](C L[employer]) TELE CONSULT [id number] Notes Entered by: YARED FATIMA 15 Mar 2014 0005 ------- ------- ------- ------- -- Need to confirm vtx KIM FATIMA 03/15 [facility](N TC Lumber Carrier [employer] ) [facility]([place] Opt[facility] ) OUTPATIENT [id number] OLIVIA MARQUEZ 03/29 Released w/o Limitations [facility]([place] Optomet ry) [facility] DIRECT TO [facility] FROM OTHER THAN ER OR APU [id number] EZRA DAY 04/04 RETURNED TO DUTY [facility]([place] Promotion Writer Social Work) INPATIENT [id number] Notes Entered by: JACQUELINE CATHY 06 Apr 2014 1428 ------- ------- ------- ------- -- inthalia nt referra l for CATHY DASH 04/06 Inpatient- Still a Patient [facility](S D Promotion Writer Social Work) [facility]([place] Promotion Writer Operation s Center) OUTPATIENT [id number] Trevi ng PP L-14 KIM FATIMA 05/15 Released w/o Limitations [facility]( D Promotion Writer Operati ons Center) [facility]) OUTPATIENT [id number] NICHELLE WILLIAMSON 12/04 Released w/o Limitations [facility]) [facility]) OUTPATIENT [id number] WWE r/s from the Nov NICHELLE CIFUENTES 12/25 Released w/o Limitations [facility]) [facility]([place] [facility] Immunizat ions) OUTPATIENT [id number] Notes Entered by: Luz DIAZ 01 Apr 2015 1114 ------- ------- ------- ------- -- VAMSI SIMON 04/01 Released w/o Limitations [facility](N [facility] Immuniz ations) [facility] HC Program) OUTPATIENT [id number] Notes Entered by: TOSHIA CHRIS 28 May 2015 1024 ------- ------- ------- ------- -- separat ion JENIFER CHRIS 05/28 Released w/o Limitations [facility](N [facility] HC Program ) [facility] Imms PCMH Tm 1) OUTPATIENT [id number] Notes Entered by: ROSAURA VAZQUEZ 28 May 2015 1045 ------- ------- ------- ------- -- PPD ROSAURA VAZQUEZONESIMO Wang 05/28 Released w/o Limitations [facility](N [facility] Imms PCMH Tm 1) [facility] Fam Med PCMH Tm 1) OUTPATIENT [id number] SEP PHY (4YRS) [id number] ABRAN MORTENSEN 05/29 Released w/o Limitations [facility](N [facility] Fam Med PCMH Tm 1) [facility](KM Fam Med PCMH TM 1) OUTPATIENT [id number] initial visit MEÑO UMAÑA 01/21 Released w/o Limitations [facility](K M Fam Med PCMH TM 1) [facility](KM Imms PCMH TM 1) OUTPATIENT [id number] Notes Entered by: ZIA LUNDBERG 09 Apr 2017 0831 ------- ------- ------- ------- -- NPV adult cold symptom s MAIKEL PABLO 04/09 Released w/o Limitations [facility](K M Imms PCMH TM 1) [facility] A[facility] X REQ PHY/QHP [id number] Diagnos is: ICD-10- CM J03.90 Acute tonsill itis, unspeci fied CUSTRED,TO RRI J [facility] EST LOW 20 MIN [id number] Diagnos is: ICD-10- CM J03.90 Acute tonsill itis, unspeci fied URI WALLACE 08/05 [facility] OFFICE O/P NEW LOW 30 MIN [id number] Diagnos is: ICD-10- CM E03.9 Hypothy roidism , unspeci fied NORA RAMIREZ 08/23 [facility] Outpatient Encounter [id number] 08/23 [facility] Outpatient Encounter [id number] ,JUN Y MARIA DE JESUS 09/02 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 Outpatient Encounter [id number] QUENTIN MONROY NA 09/27 [facility] Outpatient Encounter [id number] 09/28 [facility] Outpatient Encounter [id number] 10/03 [facility] OFF/OP EST AUGUST X REQ PHY/QHP [id number] Diagnos is: ICD-10- CM Z01.10 Encount er for exam of ears and hearing w/o abnorma l finding s MESHA RYAN 10/17 [facility] FEE [id number] Diagnos is: ICD-10- CM H93.13 Tinnitu s, bilPAUL Luo 10/18 [facility] [place] [facility] [place]MPANOMET RY [id number] Diagnos is: ICD-10- CM H93.13 tatiana Aguilar ALE XANDRA A 10/18 [place] [facility] Outpatient Encounter [id number] 11/15 [facility] [place] [facility] HC PRO PHONE CALL 11-20 MIN [id number] Diagnos is: ICD-10- CM 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 county counsel WILLARD Hsieh Y MARIA DE JESUS 11/16 [place] [facility] [place] [facility] HC PRO PHONE CALL 11-20 MIN [id number] Diagnos is: ICD-10- CM 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 Outpatient Encounter [id number] 05/26 [facility] [place] [facility] PH1 ASSMT&MGMT NQHP 11-20 [id number] Diagnos is: ICD-10- CM 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 county counsel WILLARD Hsieh Y MARIA DE JESUS 06/[address] [place] [facility] Outpatient Encounter [id number] NORA RAMIREZ 07/09 [facility] 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 WILLARD OLIVARES MARIA DE JESUS 07/18 [facility] Outpatient Encounter [id number] 07/24 [facility] Outpatient Encounter [id number] 07/28 [facility] Outpatient Encounter [id number] 08/09 [facility] Outpatient Encounter [id number] [id number] 08/24 [facility] Outpatient Encounter [id number] 09/13 [facility] Outpatient Encounter [id number] WILLARD OLIVARES MARIA DE JESUS 09/15 [facility] PH1 ASSMT&MGMT NQHP 11-20 [id number] Diagnos is: ICD-10- CM 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 county counsel WILLARD Hsieh MARIA DE JESUS 11/02 [place] [facility] OFF/OP EST AUGUST X REQ PHY/QHP [id number] Diagnos is: ICD-10- CM R60.0 Localiz ed edema Allen ADLER 11/22 [facility] OFFICE O/P EST MOD 30 MIN [id number] Diagnos is: ICD-10- CM N92.1 Excessi ve and frequen t menstru ation with irregul ar cycle URI WALLACE 11/22 [facility] Procedures Combined list of: 1) Procedures from Department of Veterans Affairs facilities going back up to thelast 18 months, not all VA non-surgical procedures are included; 2) All procedures from the Department of Defense facilities. Procedure Procedure Type Code Date Perfomer Comments Sourc e Skin Test Anergy Tuberculin Intradermal Skin Test Anergy Tuberculin Intradermal 37783 KWADWO CAMARENA IPPD; Series #: 1; .1 mL; ID; Left Arm; Mfg: [employer]; Lot: [id number]; VIS given. [facility] Influenza Split Virus Vaccine Age 3+ Years Intramuscular 015 VAMSI DIAZ [facility] Immunization Administration One Vaccine Immunization Administration One Vaccine 51892 VAMSI DIAZ [facility] Health And Behav A e mt Each 15 Min Initial A e ment Health And Behav Assessmt Each 15 Min Initial Assessment 97490 CATHY PHILLIPS [facility] Case Management, each 15 minutes CATHY PHILLIPS [facility] Visual Function Screening Visual Function Screening 00104 OLIVIA SIERRA [facility] -Supervised Group Educational Services -Supervised Group Educational Services 88786 KUSHALKIM WELSH [facility] OB Services Antepartum Care Only Subsequent Single Visit OB Services Antepartum Care Only Subsequent Single Visit 0502F KUSHALKIM WELSH [facility] Ultrasound Obstetric Limited Evaluation Ultrasound Obstetric Limited Evaluation 00718 KUSHALKIM WELSH [facility] -Supervised Group Educational Services -Supervised Group Educational Services 89606 KUSHALKIM WELSH [facility] OB Services Antepartum Care Only Subsequent Single Visit OB Services Antepartum Care Only Subsequent Single Visit 0502F KUSHALKIM WELSH [facility] -Supervised Group Educational Services -Supervised Group Educational Services 79873 KUSHALKIM WELSH [facility] OB Services Antepartum Care Only Subsequent Single Visit OB Services Antepartum Care Only Subsequent Single Visit 0502F KIM FATIMA [facility] Immunization Administration Each Additional Vaccine Immunization Administration Each Additional Vaccine 78275 MADDIE LOPEZ [facility] Tdap Vaccine Seven Years Of Age And Above Tdap Vaccine Seven Years Of Age And Above 21445 MADDIE LOPEZ [facility] Immunization Administration One Vaccine Immunization Administration One Vaccine 20881 MADDIE LOPEZ [facility] Influenza Split Virus Vacc Age 3+ Years IM Preservative Free MADDIE LOPEZ [facility] -Supervised Group Educational Services -Supervised Group Educational Services 35857 KIM FATIMA [facility] Tdap Vaccine Tdap Vaccine 37675 [facility] -Supervised Group Educational Services -Supervised Group Educational Services 08056 [facility] Immunization Administration One Vaccine Immunization Administration One Vaccine 27218 [facility] OB Services Antepartum Care Only Subsequent Single Visit OB Services Antepartum Care Only Subsequent Single Visit 0502F [facility] Health And Behav Intervention, Each 15 Min Grp (2 Or More) Health And Behav Intervention, Each 15 Min Grp (2 Or More) 84954 YAJAIRA HAM [facility] -Supervised Group Educational Services -Supervised Group Educational Services 24794 [facility] OB Services Antepartum Care Only Subsequent Single Visit OB Services Antepartum Care Only Subsequent Single Visit 0502F [facility] -Supervised Group Educational Services -Supervised Group Educational Services 50798 [facility] OB Services Antepartum Care Only Subsequent Single Visit OB Services Antepartum Care Only Subsequent Single Visit 0502F [facility] -Supervised Group Educational Services -Supervised Group Educational Services 49423 [facility] OB Services Antepartum Care Only Subsequent Single Visit OB Services Antepartum Care Only Subsequent Single Visit 0502F [facility] -Supervised Group Educational Services -Supervised Group Educational Services 88608 [facility] OB Services Antepartum Care Only Subsequent Single Visit OB Services Antepartum Care Only Subsequent Single Visit 0502F [facility] Medical Nutrition Therapy Group (2 or More Individual(s)) Medical Nutrition Therapy Group (2 or More Individual(s)) 92153 HIRO HAWKINS [facility] OB Services Antepartum Care Only Subsequent Single Visit OB Services Antepartum Care Only Subsequent Single Visit 0502F 014 DIPESH BRENNAN [facility] Health And Behav A e mt Each 15 Min Initial A e ment Health And Behav Assessmt Each 15 Min Initial Assessment [id number] CATHY PHILLIPS Individual assessment for 25 minutes DoD Case Management, each 15 minutes CATHY PHILLIPS Attended SPAD class on 45 minutes DoD Ultrasound [place] [id number] TU OG V [facility] Ophthalmological New Patient Start Intermediate Level Care Ophthalmological New Patient Start Intermediate Level Care [id number] KWADWO HAWKINS [facility] Fitting Monofocals (Not For Aphakia) [facility] Fitting Monofocals (Not For Aphakia) [phone] KWADWO HAWKINS Determination Of Refractive State Determination Of Refractive State 51778 KWADWO HAWKINS Patient Counseling Medical Management Individual Patient Patient Counseling Medical Management Individual Patient [id number] PHILLIP TRACEY Determination Of Refractive State Determination Of Refractive State [phone] ABRAN SWANSON [employer] [facility] Fitting Monofocals (Not For Aphakia) [employer] [facility] Fitting Monofocals (Not For Aphakia) [phone] ABRAN SWANSON Ophthalmological New Patient Start Comprehensive Care Ophthalmological New Patient Start Comprehensive Care [phone] ABRAN SWANSON Threshold Audiogram (Pure Tone) Threshold Audiogram (Pure Tone) [id number] DIANA MOLINA [facility] Testing [id number] DIANA MOLINA DETERMINATION OF REFRACTIVE STATE [facility] ADENOVIRUS VACCINE, TYPE 7, LIVE, FOR ORAL USE DoD PURE TONE AUDIOMETRY (THRESHOLD); AIR ONLY [facility] FITTING OF SPECTACLES, EXCEPT FOR APHAKIA; MONOFOCAL [facility] COLLECTION OF VENOUS BLOOD BY VENIPUNCTURE DoD SKIN TEST; TUBERCULOSIS, INTRADERMAL DoD SKIN TEST; TUBERCULOSIS, INTRADERMAL 016 [facility] INFLUENZA VIRUS VACCINE, TRIVALENT (IIV3), SPLIT VIRUS, 0.5 ML DOSAGE, FOR INTRAMUSCULAR USE [facility] OTHER ARTIFICIAL RUPTURE OF MEMBRANES [facility] LOW CERVICAL SECTION [facility] POSTOPERATIVE FOLLOW-UP VISIT, NORMALLY INCLUDED IN THE SURGICAL PACKAGE, INDICATE THAT EVALUATION & MANAGEMENT SERVICE WAS PERFORMED DURING A POSTOPERATIVE PERIOD REASON RELATED ORIGINAL PROCEDURE [facility] HEALTH&BEHAV ASSESSMENT (EG, HEALTH-FOC CLINICAL INTERVIEW, BEHAVIORAL OBSERVATIONS, PSYCHOPHYSICOLOGICAL MONITOR, HEALTH-ORIENT QUESTIONNAIRES), EA 15 MIN [id number] W THE PATIENT; INIT ASSESSMENT [facility] POSTOPERATIVE FOLLOW-UP VISIT, NORMALLY INCLUDED IN THE SURGICAL PACKAGE, INDICATE THAT EVALUATION & MANAGEMENT SERVICE WAS PERFORMED DURING A POSTOPERATIVE PERIOD REASON RELATED ORIGINAL PROCEDURE [facility] DELIVERY ONLY 04/05 [facility] ULTRASOUND, UTERUS, REAL TIME WITH IMAGE DOCUMENTATION, LIMITED (EG, HEART BEAT, PLACENTAL LOCATION, POSITION AND/OR QUALITATIVE AMNIOTIC FLUID VOLUME), 1 OR MORE FETUSES [facility] VIS FUNCT SCREEN,AUTOMAT/SEMI-AUT OMAT BILAT QUANT DETERM VISUAL ACUITY,OCULAR ALIGN,COLOR VISION,PSEUDOISOCHROMAT PLATES,& FIELD VIS (MAY INC ALL/SOME SCRN DETERM FOR CONTRAST SENSITIV,VIS UND GLARE) [facility] ULTRASOUND, UTERUS, REAL TIME WITH IMAGE DOCUMENTATION, LIMITED (EG, HEART BEAT, PLACENTAL LOCATION, POSITION AND/OR QUALITATIVE AMNIOTIC FLUID VOLUME), 1 OR MORE FETUSES [facility] PHYS/OTH QUALIFIED HEALTH VEST BASTER QUALIFIED,EDUCATION,TRA IN,LICENSURE/REGULATION (WHEN APPLICABLE) EDUC SER RENDERED TO PATS IN A GRP SETTING (EG,,OBESITY,OR DIABETIC INSTRUCT) [facility] PHYS/OTH QUALIFIED HEALTH VEST BASTER QUALIFIED,EDUCATION,TRA IN,LICENSURE/REGULATION (WHEN APPLICABLE) EDUC SER RENDERED TO PATS IN A GRP SETTING (EG,,OBESITY,OR DIABETIC INSTRUCT) [facility] IMMUNIZATION ADMINISTRATION (INCLUDES PERCUTANEOUS, INTRADERMAL, SUBCUTANEOUS, OR INTRAMUSCULAR INJECTIONS); EACH ADDITIONAL VACCINE (SINGLE OR COMBINATION VACCINE/TOXOID) [facility] SUBSEQ CARE VISIT () [EXCLS:PATIENTS WHO ARE SEEN FOR A CONDITION UNREL TO / CARE (EG,AN UP RESPIR INFECT;PATIENTS SEEN FOR CONSULTATION ONLY,NOT FOR CONT CARE)] [facility] HEALTH AND BEHAVIOR INTERVENTION, EACH 15 MINUTES, [id number]; GROUP (2 OR MORE PATIENTS) [facility] PHYS/OTH QUALIFIED HEALTH VEST BASTER QUALIFIED,EDUCATION,TRA IN,LICENSURE/REGULATION (WHEN APPLICABLE) EDUC SER RENDERED TO PATS IN A GRP SETTING (EG,,OBESITY,OR DIABETIC INSTRUCT) [facility] PHYS/OTH QUALIFIED HEALTH VEST BASTER QUALIFIED,EDUCATION,TRA IN,LICENSURE/REGULATION (WHEN APPLICABLE) EDUC SER RENDERED TO PATS IN A GRP SETTING (EG,,OBESITY,OR DIABETIC INSTRUCT) [facility] PHYS/OTH QUALIFIED HEALTH VEST BASTER QUALIFIED,EDUCATION,TRA IN,LICENSURE/REGULATION (WHEN APPLICABLE) EDUC SER RENDERED TO PATS IN A GRP SETTING (EG,,OBESITY,OR DIABETIC INSTRUCT) [facility] PHYS/OTH QUALIFIED HEALTH VEST BASTER QUALIFIED,EDUCATION,TRA IN,LICENSURE/REGULATION (WHEN APPLICABLE) EDUC SER RENDERED TO PATS IN A GRP SETTING (EG,,OBESITY,OR DIABETIC INSTRUCT) [facility] MEDICAL NUTRITION THERAPY; GROUP (2 OR MORE INDIVIDUAL(S)), EACH 30 MINUTES [facility] SUBSEQ CARE VISIT () [EXCLS:PATIENTS WHO ARE SEEN FOR A CONDITION UNREL TO / CARE (EG,AN UP RESPIR INFECT;PATIENTS SEEN FOR CONSULTATION ONLY,NOT FOR CONT CARE)] [facility] HEALTH&BEHAV ASSESSMENT (EG, HEALTH-FOC CLINICAL INTERVIEW, BEHAVIORAL OBSERVATIONS, PSYCHOPHYSICOLOGICAL MONITOR, HEALTH-ORIENT QUESTIONNAIRES), EA 15 MIN [id number] W THE PATIENT; INIT ASSESSMENT [facility] ULTRASOUND, UTERUS, REAL TIME WITH IMAGE DOCUMENTATION,TRANSVAGI NAL [facility] Social History Combined list of available smoking, tobacco, and other social history from Department of Defense and Veterans Affairs facilities. Social History Type Response Date Comment Sourc e Tobacco smoking status NHIS VA-TOBACCO NEVER USED 08/24/2023 [facility] This section is an empty social history section. [facility]
== END 2024-11-22 23:53 | disposition home or self-care (01) ==
PROVIDERS: Emergency Provider Emergency Medicine; PCP Nurse Practitioner
DX: D64.9 Anemia, unspecified (principal); F17.290 Nicotine dependence, other tobacco product, uncomplicated
CPT/HCPCS: 36430; 80053; 84703; 85025; 86850; 86900; 86920; 96360; 96361; 99284; J7030; P9016

== ENCOUNTER → 2024-12-18 10:44 | Outpatient (BNVA) | payer OTHER, SELFPAY | PROVIDERS: PCP Nurse Practitioner; Visit Provider Obstetrics & Gynecology | DX: N92.6 Irregular menstruation, unspecified (principal) | CPT/HCPCS: 76830 ==

== ENCOUNTER → 2025-02-01 14:30 | Outpatient (BNVA) | payer OTHER, SELFPAY | PROVIDERS: PCP Nurse Practitioner; Visit Provider Obstetrics & Gynecology | DX: N92.6 Irregular menstruation, unspecified (principal) | CPT/HCPCS: 85025 ==